=== PATIENT | male | born 1960 | race African-American/Black ===

== ENCOUNTER → 2016-11-04 | Outpatient (REF) | payer BC ==
[~2016-11-04] MED LIST: ASPI81TA85 PO; CATA0.2T PO; CLON-412 PO; COLA100C5 PO; DIOV80TA3 PO; FLAG500T PO; LANTINJ4 SC; LEVA1TAB2 PO; METO1TAB32 PO; METO25TAB PO; MULT1TAB8 PO; PROT1TAB2 PO; [UNRECOGNIZED DRUG - OTHER] EXT
== END ==
LOC: M LAB REF 18:48
PROVIDERS: ATTEND Family Medicine
DX: E07.9 Disorder of thyroid, unspecified (principal)

== ENCOUNTER → 2017-09-29 | Outpatient (REF) | payer BC ==
[2017-09-29 18:01] LABS: FREE T3 3.1 PG/ML (2.2-4.0)
== END ==
LOC: M LAB REF 17:06
DX: E07.9 Disorder of thyroid, unspecified (principal)
CPT/HCPCS: 84481

== ENCOUNTER → 2017-11-13 | Outpatient (CLI) | payer BC ==
[2017-11-13 15:32] LABS: FREE T4 0.69 NG/DL (0.76-1.46); THYROID STIMULATING HORMONE 0.572 uIU/ML (0.358-3.740)
[2017-11-14 09:22] LABS: THYROGLOBULIN ANTIBODY 23.2 U/ML (<60.0)
[2017-11-16 08:06] LABS: TSH RECEPTOR ASSAY 1.98 IU/L (0.00-1.75)
[2017-11-16 08:06] LABS: THYROID STIMULATING IMMUNOGLOB 1.47 IU/L (0.00-0.55)
== END ==
LOC: M LAB 13:17
DX: E05.90 Thyrotoxicosis, unspecified without thyrotoxic crisis or storm (principal)

== ENCOUNTER → 2017-12-20 | Outpatient (REF) | payer BC ==
[2017-12-20 08:45] LABS: ESTIMATED AVERAGE GLUCOSE 123 MG/DL (60-110); HEMOGLOBIN A1c 5.9 %
[2017-12-20 09:04] LABS: FREE T3 2.9 PG/ML (2.2-4.0); FREE T4 0.91 NG/DL (0.76-1.46); THYROID STIMULATING HORMONE 0.239 uIU/ML (0.358-3.740)
== END ==
LOC: M LAB REF 08:05
DX: E11.9 Type 2 diabetes mellitus without complications (principal); Z79.4 Long term (current) use of insulin; E05.90 Thyrotoxicosis, unspecified without thyrotoxic crisis or storm

== ENCOUNTER → 2018-03-30 | Outpatient (CLI) | payer BC ==
[2018-03-30 08:58] LABS: HEMATOCRIT 48.3 % (42.0-52.0); HEMOGLOBIN 16.3 g/dl (13.5-17.5); MEAN CORPUSCULAR HEMOGLOBIN 29.2 pg (27.0-33.0); MEAN CORPUSCULAR HGB CONC 33.7 g/dl (32.0-36.5); MEAN CORPUSCULAR VOLUME 86.4 fl (80.0-96.0); PLATELET COUNT, AUTOMATED 270 10^3/uL (150-450); RED BLOOD COUNT 5.59 10^6/uL (4.30-6.10); WHITE BLOOD COUNT 6.5 10^3/uL (4.0-10.0)
[2018-03-30 09:23] LABS: HEMOGLOBIN A1c 6.2 %
[2018-03-30 09:30] LABS: BLOOD UREA NITROGEN 18 MG/DL (7-18); CALCIUM LEVEL 9.5 MG/DL (8.5-10.1); CARBON DIOXIDE LEVEL 27 MEQ/L (21-32); CHLORIDE LEVEL 100 MEQ/L (98-107); CHOLESTEROL LEVEL 233 MG/DL (<200); CHOLESTEROL RISK RATIO 3.426 (<5); CREATININE FOR GFR 1.24 MG/DL (0.70-1.30); FREE T4 0.98 NG/DL (0.76-1.46); GLOMERULAR FILTRATION RATE > 60.0 (>56); GLUCOSE, FASTING 103 MG/DL (70-100); HDL CHOLESTEROL 68 MG/DL (>40); LDL CHOLESTEROL 139 MG/DL (<100); NON-HDL-C 165 MG/DL; POTASSIUM SERUM 3.6 MEQ/L (3.5-5.1); SODIUM LEVEL 137 MEQ/L (136-145); THYROID STIMULATING HORMONE 0.667 uIU/ML (0.358-3.740); TRIGLYCERIDES LEVEL 131 MG/DL (<150)
== END ==
LOC: M LAB 08:16
PROVIDERS: ATTEND Internal Medicine Endocrinology, Diabetes & Metabolism
DX: E11.9 Type 2 diabetes mellitus without complications (principal); Z79.4 Long term (current) use of insulin

== ENCOUNTER 2018-05-27 21:38 | Emergency (ER) | payer BC ==
[~2018-05-27] VITALS: Ht 177.8 cm; Wt 98.6 kg
[~2018-05-27 21:38] MED LIST changes: +METO1TAB63 PO; -METO25TAB PO
[2018-05-27] MEDS ORDERED: NS 1,000 ML IV ONE (22:15)
[2018-05-27 22:29] LABS: BASO % 0.2 % (0.0-1.0); EOS % 0.5 % (0.0-3.0); HEMATOCRIT 43.1 % (42.0-52.0); HEMOGLOBIN 14.4 g/dl (13.5-17.5); LYMPH # 1.3 10^3/uL (1.5-4.5); LYMPH % 14.3 % (24.0-44.0); MEAN CORPUSCULAR HEMOGLOBIN 28.5 pg (27.0-33.0); MEAN CORPUSCULAR HGB CONC 33.4 g/dl (32.0-36.5); MEAN CORPUSCULAR VOLUME 85.3 fl (80.0-96.0); MONO # 0.9 10^3/uL (0.0-0.8); MONO % 10.5 % (0.0-5.0); NEUTROPHILS # 6.5 10^3/uL (1.8-7.7); NEUTROPHILS % 73.6 % (36.0-66.0); PLATELET COUNT, AUTOMATED 275 10^3/uL (150-450); RED BLOOD COUNT 5.05 10^6/uL (4.30-6.10); WHITE BLOOD COUNT 8.9 10^3/uL (4.0-10.0)
[2018-05-27] MEDS ORDERED: METH10TA PO (22:40)
[2018-05-27] MEDS ORDERED: ASPI81TA85 PO (22:40)
[2018-05-27] MEDS ORDERED: METO1TAB32 PO (22:40)
[2018-05-27] MEDS ORDERED: PANT40TA3 PO (22:40)
[2018-05-27] MEDS ORDERED: AMLO10TA5 PO (22:40)
[2018-05-27 22:46] LABS: INR 1.08; PARTIAL THROMBOPLASTIN TIME 27.1 SECONDS (25.4-37.6); PROTHROMBIN TIME 14.1 SECONDS (12.1-14.4)
[2018-05-27 22:53] LABS: ALBUMIN 3.7 GM/DL (3.2-5.2); ALT/SGPT 31 U/L (12-78); BILIRUBIN,DIRECT 0.2 MG/DL (0.0-0.2); BILIRUBIN,TOTAL 0.6 MG/DL (0.2-1.0); BLOOD UREA NITROGEN 14 MG/DL (7-18); CALCIUM LEVEL 9.2 MG/DL (8.5-10.1); CARBON DIOXIDE LEVEL 25 MEQ/L (21-32); CHLORIDE LEVEL 104 MEQ/L (98-107); CREATININE FOR GFR 1.12 MG/DL (0.70-1.30); GLOMERULAR FILTRATION RATE > 60.0 (>56); GLUCOSE, FASTING 117 MG/DL (70-100); LIPASE 80 U/L (73-393); SODIUM LEVEL 138 MEQ/L (136-145); TOTAL PROTEIN 7.5 GM/DL (6.4-8.2)
[2018-05-27] MEDS ORDERED: ISOVUE-370 76% 125ML VIAL (Q9967 PER ML) As Ordered ONE (22:58)
--- NOTE | 2018-05-27 23:53 | REPVR ---
EXAM: CT Abdomen and Pelvis With Contrast EXAM DATE/TIME: 05/27/2018 11:01 PM CLINICAL HISTORY: 57 years old, male; Pain; Abdominal pain; Localized; Left lower quadrant (llq); Additional info: Llq pain, lower gi bleed TECHNIQUE: Imaging protocol: Axial computed tomography images of the abdomen and pelvis with intravenous contrast. Coronal and sagittal reformatted images were created and reviewed. Radiation optimization: All CT scans at this facility use at least one of these dose optimization techniques: automated exposure control; mA and/or kV adjustment per patient size (includes targeted exams where dose is matched to clinical indication); or iterative reconstruction. Contrast material: ISOVUE 370 Contrast volume: 100 ml Contrast route: IV COMPARISON: CT ABD PELVIS WITH CONTRAST 04/22/2015 1:19 AM FINDINGS: Lower thorax: No acute findings. ABDOMEN: Liver: There is a diffuse decrease in hepatic parenchymal density, consistent with fatty infiltration. Gallbladder and bile ducts: Normal. No calcified stones. No ductal dilation. Pancreas: Normal. No ductal dilation. Spleen: Normal. No splenomegaly. Adrenals: Normal. No mass. Kidneys and ureters: Normal. No hydronephrosis. Stomach and bowel: Mild diverticulosis is present in the distal colon. No diverticulitis. Appendix: No evidence of appendicitis. PELVIS: Bladder: Mild thickening of the bladder wall likely related to changes of chronic bladder outlet obstruction. Clinical correlation to exclude cystitis suggested. Reproductive: Unremarkable as visualized. ABDOMEN and PELVIS: Intraperitoneal space: Normal. No free air. No significant fluid collection. Bones/joints: Mild central spinal stenosis at L4-5. Bulging annulus at L5-S1. Soft tissues: Small periumbilical hernia. Small umbilical hernia. Vasculature: The aorta demonstrates mild atherosclerotic calcification. Lymph nodes: Normal. No enlarged lymph nodes. IMPRESSION: 1. There is a diffuse decrease in hepatic parenchymal density, consistent with fatty infiltration. 2. Mild thickening of the bladder wall likely related to changes of chronic bladder outlet obstruction. Clinical correlation to exclude cystitis suggested. 3. Mild diverticulosis is present in the distal colon. No diverticulitis. Electronically signed by: Yahir Chaparro On 05/27/2018 23:53:03 PM
[2018-05-28] MEDS ORDERED: CIPROFLOXACIN 500 MG TAB PO ONE
[2018-05-28] MEDS ORDERED: metroNIDAZOLE (FLAGYL) 500 MG TAB PO ONE
[2018-05-28] MEDS ORDERED: CIPR500T3 PO (00:01)
[2018-05-28] MEDS ORDERED: METR-201 PO (00:01)
[2018-05-28 00:15] VITALS: BP 173/83
== END 2018-05-28 00:29 | disposition home or self-care (01) ==
LOC: M ED 21:38
DX: K92.2 Gastrointestinal hemorrhage, unspecified (principal); K57.92 Diverticulitis of intestine, part unspecified, without perforation or abscess without bleeding; E11.9 Type 2 diabetes mellitus without complications; I10 Essential (primary) hypertension; Z79.899 Other long term (current) drug therapy; Z79.4 Long term (current) use of insulin; Z79.82 Long term (current) use of aspirin; Z85.46 Personal history of malignant neoplasm of prostate; Z92.3 Personal history of irradiation
CPT/HCPCS: 74177; 80048; 80076; 81001; 83605; 83690; 85025; 85610; 85730; 87040; 93041; 96360; 96361; 99285; Q9967

== ENCOUNTER → 2018-06-20 | Outpatient (CLI) | payer BC ==
[~2018-06-20] MED LIST changes: +AMLO10TA5 PO; +CIPR500T3 PO; +METH10TA PO; +METR-265 PO; +PANT40TA3 PO
[2018-06-20 11:38] LABS: HEMATOCRIT 44.2 % (42.0-52.0); HEMOGLOBIN 14.8 g/dl (13.5-17.5); MEAN CORPUSCULAR HEMOGLOBIN 28.2 pg (27.0-33.0); MEAN CORPUSCULAR HGB CONC 33.5 g/dl (32.0-36.5); MEAN CORPUSCULAR VOLUME 84.2 fl (80.0-96.0); PLATELET COUNT, AUTOMATED 318 10^3/uL (150-450); RED BLOOD COUNT 5.25 10^6/uL (4.30-6.10); WHITE BLOOD COUNT 6.7 10^3/uL (4.0-10.0)
[2018-06-20 12:24] LABS: BLOOD UREA NITROGEN 15 MG/DL (7-18); CALCIUM LEVEL 9.2 MG/DL (8.5-10.1); CARBON DIOXIDE LEVEL 28 MEQ/L (21-32); CHLORIDE LEVEL 102 MEQ/L (98-107); CHOLESTEROL LEVEL 234 MG/DL (<200); CHOLESTEROL RISK RATIO 4.105 (<5); FREE T4 1.23 NG/DL (0.76-1.46); GLOMERULAR FILTRATION RATE > 60.0 (>56); GLUCOSE, FASTING 126 MG/DL (70-100); HDL CHOLESTEROL 57 MG/DL (>40); LDL CHOLESTEROL 146 MG/DL (<100); NON-HDL-C 177 MG/DL; POTASSIUM SERUM 3.4 MEQ/L (3.5-5.1); SODIUM LEVEL 137 MEQ/L (136-145); THYROID STIMULATING HORMONE 0.159 uIU/ML (0.358-3.740); TRIGLYCERIDES LEVEL 155 MG/DL (<150)
[2018-06-20 13:08] LABS: HEMOGLOBIN A1c 7.4 %
== END ==
LOC: M LAB 10:43
PROVIDERS: ATTEND Internal Medicine Endocrinology, Diabetes & Metabolism
DX: E11.9 Type 2 diabetes mellitus without complications (principal); Z79.4 Long term (current) use of insulin

== ENCOUNTER → 2018-11-19 | Outpatient (CLI) | payer BC ==
[2018-11-19 10:34] LABS: HEMOGLOBIN A1c 6.8 %
[2018-11-19 10:42] LABS: BLOOD UREA NITROGEN 13 MG/DL (7-18); CALCIUM LEVEL 9.5 MG/DL (8.5-10.1); CARBON DIOXIDE LEVEL 26 MEQ/L (21-32); CHLORIDE LEVEL 100 MEQ/L (98-107); CHOLESTEROL LEVEL 236 MG/DL (<200); CHOLESTEROL RISK RATIO 3.687 (<5); CREATININE FOR GFR 1.38 MG/DL (0.70-1.30); FREE T3 2.6 PG/ML (2.2-4.0); FREE T4 0.92 NG/DL (0.76-1.46); GLOMERULAR FILTRATION RATE > 60.0 (>56); GLUCOSE, FASTING 132 MG/DL (70-100); HDL CHOLESTEROL 64 MG/DL (>40); LDL CHOLESTEROL 133 MG/DL (<100); NON-HDL-C 172 MG/DL; POTASSIUM SERUM 3.8 MEQ/L (3.5-5.1); SODIUM LEVEL 137 MEQ/L (136-145); TRIGLYCERIDES LEVEL 197 MG/DL (<150)
== END ==
LOC: M LAB 09:11
PROVIDERS: ATTEND Physician Assistant Medical
DX: E11.9 Type 2 diabetes mellitus without complications (principal)

== ENCOUNTER → 2019-02-19 | Outpatient (CLI) | payer BC ==
[2019-02-19 09:56] LABS: BLOOD UREA NITROGEN 10 MG/DL (7-18); CALCIUM LEVEL 9.3 MG/DL (8.5-10.1); CARBON DIOXIDE LEVEL 23 MEQ/L (21-32); CHLORIDE LEVEL 106 MEQ/L (98-107); CHOLESTEROL LEVEL 155 MG/DL (<200); CHOLESTEROL RISK RATIO 1.823 (<5); CREATININE FOR GFR 1.04 MG/DL (0.70-1.30); FREE T3 2.8 PG/ML (2.2-4.0); FREE T4 1.11 NG/DL (0.76-1.46); GLOMERULAR FILTRATION RATE > 60.0 (>56); GLUCOSE, FASTING 107 MG/DL (70-100); HDL CHOLESTEROL 85 MG/DL (>40); LDL CHOLESTEROL 52 MG/DL (<100); NON-HDL-C 70 MG/DL; SODIUM LEVEL 138 MEQ/L (136-145); THYROID STIMULATING HORMONE 0.082 uIU/ML (0.358-3.740); TRIGLYCERIDES LEVEL 90 MG/DL (<150)
[2019-02-19 09:59] LABS: MAU/CREAT RATIO 109.1 MCG/MG (0.0-30.0)
[2019-02-19 11:14] LABS: HEMOGLOBIN A1c 5.8 %
== END ==
LOC: M LAB 08:22
PROVIDERS: ATTEND Physician Assistant Medical
DX: E05.90 Thyrotoxicosis, unspecified without thyrotoxic crisis or storm (principal); E11.9 Type 2 diabetes mellitus without complications; Z79.4 Long term (current) use of insulin

== ENCOUNTER → 2019-06-26 | Outpatient (CLI) | payer BC ==
[2019-06-26 11:25] LABS: BLOOD UREA NITROGEN 9 MG/DL (7-18); CALCIUM LEVEL 9.2 MG/DL (8.5-10.1); CARBON DIOXIDE LEVEL 25 MEQ/L (21-32); CHLORIDE LEVEL 104 MEQ/L (98-107); FREE T3 3.2 PG/ML (2.2-4.0); FREE T4 1.07 NG/DL (0.76-1.46); GLOMERULAR FILTRATION RATE > 60.0 (>56); GLUCOSE, FASTING 141 MG/DL (70-100); POTASSIUM SERUM 4.2 MEQ/L (3.5-5.1); SODIUM LEVEL 135 MEQ/L (136-145); THYROID STIMULATING HORMONE 0.997 uIU/ML (0.358-3.740)
[2019-06-26 11:55] LABS: MAU/CREAT RATIO 90.3 MCG/MG (0.0-30.0)
== END ==
LOC: M LAB 09:57
PROVIDERS: ATTEND Physician Assistant Medical
DX: E11.9 Type 2 diabetes mellitus without complications (principal); Z79.4 Long term (current) use of insulin; E05.90 Thyrotoxicosis, unspecified without thyrotoxic crisis or storm

== ENCOUNTER → 2019-06-27 | Outpatient (CLI) | payer BC ==
[2019-06-27 17:03] LABS: HEMOGLOBIN A1c 6.9 %
== END ==
LOC: M LAB 15:52
PROVIDERS: ATTEND Internal Medicine Endocrinology, Diabetes & Metabolism
DX: E11.9 Type 2 diabetes mellitus without complications (principal)

== ENCOUNTER → 2019-07-30 | Outpatient (CLI) | payer BC | LOC: M LAB 10:13 | PROVIDERS: ATTEND Radiology Radiation Oncology | DX: C61 Malignant neoplasm of prostate (principal) ==

== ENCOUNTER → 2019-10-03 | Outpatient (CLI) | payer BC ==
[~2019-10-03] MED LIST changes: -AMLO10TA5 PO; +AMLO1TAB25 PO; -ASPI81TA85 PO; +ASPI81TA86 PO; +PANT40TA29 PO; -PANT40TA3 PO
[2019-11-11 11:45] LABS: HEMOGLOBIN A1c 6.6 %; MALB URINE SIEMENS 86.5 MG/L
[2019-11-11 11:47] LABS: BLOOD UREA NITROGEN 12 MG/DL (7-18); CALCIUM LEVEL 9.2 MG/DL (8.5-10.1); CARBON DIOXIDE LEVEL 27 MEQ/L (21-32); CHLORIDE LEVEL 100 MEQ/L (98-107); CHOLESTEROL LEVEL 171 MG/DL (<200); CHOLESTEROL RISK RATIO 2.342 (<5); CREATININE FOR GFR 1.24 MG/DL (0.70-1.30); FREE T4 1.01 NG/DL (0.76-1.46); GLOMERULAR FILTRATION RATE > 60.0 (>56); GLUCOSE, FASTING 129 MG/DL (70-100); HDL CHOLESTEROL 73 MG/DL (>40); LDL CHOLESTEROL 70 MG/DL (<100); NON-HDL-C 98 MG/DL; SODIUM LEVEL 135 MEQ/L (136-145); THYROID STIMULATING HORMONE 0.863 uIU/ML (0.358-3.740); TRIGLYCERIDES LEVEL 139 MG/DL (<150)
== END ==
LOC: M LAB 09:33
PROVIDERS: ATTEND Internal Medicine Endocrinology, Diabetes & Metabolism
DX: E11.9 Type 2 diabetes mellitus without complications (principal); Z79.4 Long term (current) use of insulin; E05.90 Thyrotoxicosis, unspecified without thyrotoxic crisis or storm

== ENCOUNTER → 2020-04-04 | Outpatient (CLI) | payer BC ==
[2020-04-04 11:44] LABS: HEMOGLOBIN A1c 6.5 %
[2020-04-04 11:51] LABS: CHOLESTEROL RISK RATIO 2.055 (<5); FREE T4 1.03 NG/DL (0.76-1.46); THYROID STIMULATING HORMONE 1.41 uIU/ML (0.358-3.740)
[2020-04-04 11:59] LABS: MALB URINE SIEMENS 20.1 MG/L; MAU/CREAT RATIO 15.2 MCG/MG (0.0-30.0)
== END ==
LOC: M LAB 09:22
PROVIDERS: ATTEND Internal Medicine Endocrinology, Diabetes & Metabolism
DX: E11.9 Type 2 diabetes mellitus without complications (principal); Z79.4 Long term (current) use of insulin

== ENCOUNTER → 2020-06-04 | Outpatient (CLI) | payer BC ==
[2020-06-04 10:24] LABS: BLOOD UREA NITROGEN 10 MG/DL (7-18); CALCIUM LEVEL 9.2 MG/DL (8.8-10.2); CARBON DIOXIDE LEVEL 27 MEQ/L (21-32); CHLORIDE LEVEL 101 MEQ/L (98-107); CREATININE FOR GFR 1.15 MG/DL (0.70-1.30); FREE T3 2.6 PG/ML (2.2-4.0); FREE T4 0.97 NG/DL (0.76-1.46); GLOMERULAR FILTRATION RATE > 60.0 (>49); GLUCOSE, FASTING 132 MG/DL (70-100); POTASSIUM SERUM 3.8 MEQ/L (3.5-5.1); SODIUM LEVEL 135 MEQ/L (136-145)
[2020-06-04 10:26] LABS: MAU/CREAT RATIO 23.6 MCG/MG (0.0-30.0)
== END ==
LOC: M LAB 08:58
PROVIDERS: ATTEND Physician Assistant Medical
DX: E11.9 Type 2 diabetes mellitus without complications (principal); Z79.4 Long term (current) use of insulin; C61 Malignant neoplasm of prostate; I10 Essential (primary) hypertension; E78.00 Pure hypercholesterolemia, unspecified; E05.90 Thyrotoxicosis, unspecified without thyrotoxic crisis or storm
CPT/HCPCS: 36415; 80048; 82043; 84439; 84443; 84481; G0103

== ENCOUNTER → 2020-09-03 | Outpatient (REF) | payer BC | LOC: M LAB REF 11:46 | PROVIDERS: ATTEND Ophthalmology | DX: D23.10 Other benign neoplasm of skin of unspecified eyelid, including canthus (principal) ==

== ENCOUNTER → 2020-09-15 | Outpatient (REF) | LOC: M LAB 15:53 | PROVIDERS: ATTEND Nurse Practitioner Adult Health | DX: Z00.00 Encounter for general adult medical examination without abnormal findings (principal) ==

== ENCOUNTER → 2020-12-09 | Outpatient (CLI) | payer BC ==
[2020-12-09 11:14] LABS: HEMOGLOBIN A1c 6.7 %
[2020-12-09 11:44] LABS: CHOLESTEROL RISK RATIO 2.405 (<5); FREE T4 1.07 NG/DL (0.76-1.46); THYROID STIMULATING HORMONE 1.3 uIU/ML (0.358-3.740)
== END ==
LOC: M LAB 09:30
PROVIDERS: ATTEND Physician Assistant Medical
DX: E11.9 Type 2 diabetes mellitus without complications (principal); Z79.4 Long term (current) use of insulin; E05.90 Thyrotoxicosis, unspecified without thyrotoxic crisis or storm

== ENCOUNTER → 2021-01-10 | Outpatient (CLI) | payer BC ==
[~2021-01-10] MED LIST changes: +ASPI1CHW3 PO; +ATOR1TAB19 PO; +HYDR-3490 PO; +TELM1TAB37 PO
== END ==
LOC: M LABSMTC 10:10
PROVIDERS: ATTEND Anesthesiology
DX: Z01.812 Encounter for preprocedural laboratory examination (principal); Z20.822 Contact with and (suspected) exposure to COVID-19

== ENCOUNTER 2021-01-15 07:43 | Day surgery (SDC) | payer BC ==
[~2021-01-15] VITALS: Ht 177.8 cm; Wt 94.7 kg
[~2021-01-15 07:43] MED LIST changes: +LIDOCAINE 2% 100MG/5ML SDV (FOR ANES.) As Ordered ONE; +NS 1,000 ML IV ONE; +propofoL 200 MG/20 ML VIAL As Ordered ONE
--- OUTSIDE RECORDS SUMMARY | 2021-01-15 07:46 | CCD | Continuity of Care Document ---
Author Author Lab Schedule, Wayne Ramsey Organization Unknown Address [address] [place] [address] Phone Unavailable Care Team Providers Care Coagulator Name Role Phone Loc Bowles MD AUTM [phone] Chrissy Lara AUTM Problems Active Problems Provider Date Insulin treated type 2 diabetes mellitus ROB Parra Onset: 05/01/2015 Essential hypertension ROB Parra Onset: 05/01/2015 Gastroesophageal reflux disease ROB Parra Onset: 0 05/01/2015 Secondary erectile dysfunction Loc Bowles M.D. Onset: 0 07/21/2015 Social History Type Date Description Comments Sex Unknown ETOH Use Rarely consumes alcohol Tobacco Use Start: Unknown Patient has never smoked Allergies, Adverse Reactions, Alerts Description No Known Drug Allergies Medications Active Medications SIG Qnty Indications Ordering Provide r Date Hydrochlorothiazide 25mg Tablets 1 by mouth every day 90tasola Bowles M.D. 08/24/2019 Ozempic 0.25or 0.5 m g/Dose Solution Pen-Inject inject 0.5 mg weekly 3ml Loc Bowles M.D. 07/10/2018 Tapazole 10mg Tablets po 1/2 tab daily (takes M, W, F) - per Dr Braden (Endocrine) 90tasola Bowles M.D. 05/31/2017 Metoprolol Succinate ER 25mg Tablets ER 24HR 1 by mouth every day 90nehemias Bowles M.D. 11/04/2016 Norvasc 10mg Tablets 1 by mouth every day 90tasola Bowles M.D. 10/21/2015 Lancets 30G 30G Misc test twice a day and as needed e11.9 100units E11.9 Loc Bowles M.D. 07/21/2015 Pen [place] 31G X 6 mm Misc as directed every day 100units E11.9 Loc Bowles M.D. 05/30/2015 Onetouch Ultra Blue Strips test every day and as needed 100units E11.9 Loc Bowles M.D. 05/30/2015 Micardis 80mg Tablets 1 daily 30tabs Loc Bowles M.D. History Medications Tobramycin-Dexamethasone 0.3-0.1% Suspension 1 drop affected eye three times a day x 7 days 2.500ml Loc Bowles M.D. 06/04/2020 - 06/19/2020 Immunizations Description No Information Available Vital Signs Date Vital Result Comment 06/19/2020 12:01pm BP Systolic 138 mmHg BP Diastolic 90 mmHg Heart Rate 78 /min Height 71 inches 5'11" Weight 211.00 lb BMI (Body Mass Index) 29.4 kg/m2 02/20/2020 3:16pm BP Systolic 142 mmHg BP Diastolic 80 mmHg BP Systolic Recheck 135 mmHg BP Diastolic Recheck 70 mmHg Heart Rate 78 /min Height 71 inches 5'11" Weight 208.00 lb BMI (Body Mass Index) 29.0 kg/m2 Results Test Acquired Date Facility Test Result H/L Range Note A1c 08/29/2020 [facility] Personal Attendant: Dr Kulwant Alcantara [place], [place] [id number] [phone] Hba1c 7.0 % High <5.7 1 Est Avg Glucose 154 mg/dL High 60 - 110 Comprehensive Chem Profile 08/29/2020 [facility] Personal Attendant: [place] [address] [phone] Glucose 147 mg/dL High 74 - 99 2 BUN 11 mg/dL 7 - 18 Creatinine 1.2 mg/dL 0.6 - 1.3 Sodium 136 mEq/L 136 - 145 Potassium 3.7 mEq/L 3.5 - 5.1 Chloride 98 mEq/L 98 - 107 Carbon Dioxide 27 mEq/L 21 - 32 Calcium 9.2 mg/dL 8.5 - 10.1 Alk. Phosphatase 83 mg/dL 46 - 116 Total Bilirubin 1.1 mg/dL High 0.2 - 1.0 Ast (Sgot) 23 U/L 15 - 37 Alt (SGPT) 36 U/L 12 - 78 Albumin 3.6 g/dL 3.4 - 5.0 Total Protein 7.2 g/dL 6.4 - 8.2 A/G Ratio 1.00 CALC 1.00 - 1.90 GFR >= 60 mL/min >60 GFR >= 60 mL/min >60 3 Lipid Profile 08/29/2020 [facility] Personal Attendant: [place] [address] [phone] Cholesterol 172 mg/dL 131 - 200 Triglycerides 189 mg/dL High 30 - 150 HDL Cholesterol 68 mg/dL High 35 - 60 LDL (Calculated) 66 CALC 50 - 159 Basic Metabolic Profile 06/04/[address] [address] [phone] Glucose, Fasting 132 mg/dL High 70-100 Blood Urea Nitrogen 10 mg/dL Normal 7-18 Creatinine For GFR 1.15 mg/dL Normal 0.70-1.30 Glomerular Filtration Rate > 60.0 Normal >49 4 Sodium Level 135 mEq/L Low 136-145 Potassium Serum 3.8 mEq/L Normal 3.5-5.1 Chloride Level 101 mEq/L Normal 98-107 Carbon Dioxide Level 27 mEq/L Normal 21-32 Anion Gap 7 mEq/L Low 8-16 Calcium Level 9.2 mg/dL Normal 8.8-10.2 Laboratory test finding 06/04/2020 [facility] [address] [place] [address] [phone] PSA Screening 0.45 NG/ML Normal < 4.00 5 FT4&TSH Panel 06/04/2020 [facility] nter [address] [place] [address] [phone] Thyroid Stimulating Hormone 1.740 uIU/ML Normal 0. 358-3.740 Free T4 0.97 ng/dL Normal 0.76-1.46 Laboratory test finding 06/04/[address], [place] [address] [phone] Free T3 2.6 pg/mL Normal 2.2-4.0 Microalbumin Random 06/04/2020 [facility] nter [address] [place] [address] [phone] Creatinine, Urine 110.0 mg/dL Normal Malb Urine Siemens 26.0 mg/L Normal Bryan/Creat Ratio 23.6 MCG/MG Normal 0.0-30.0 6 1 Lab Result Notes: Pre-Diabetes 5.7 - 6.4 % Diabetes = or > 6.5% 2 100-125 mg/dL PRE-DIABET ES/FASTING >126 mg/dL DIABETES/FASTING 3 CHRONIC KIDNEY DISEASE STAGI NG PER NKF STAGE I & II GFR >= 60 NORMAL TO MILDLY DECREASED STAGE III GFR 30-59 MODERATELY DECREASED STAGE IV GFR 15-29 SEVERELY DECREASED STAGE V GFR <15 VERY LITTLE GFR LEFT ESRD GFR <15 ON REWARDS CONSULTANT 4 Units are mL/min/1.73 m2 Chronic Kidney Disease Staging per NKF: Stage I & II GFR >=60 Normal to Mildly Decreased Stage III GFR 30-59 Moderately Decreased Stage IV GFR 15-29 Severely Decreased Stage V GFR <15 Very Little GFR Left ESRD GFR <15 on REWARDS CONSULTANT 5 The PSA assay is performed o n the Siemens [place] analyzer by LOCI sandwich chemiluminescent immunoassay and should not be compared interchangeably with other methods. It should not be used alone as a screening test or diagnosis for the presence or absence of malignant disease. Predictions of disease recurrence should not be based solely on values obtained from serial patient serum values. [address] [employer] STATES THAT MICROALBUMINURIA IS PRESENT IF THE MICROALBUMIN/CREATININE RATIO EXCEEDS 30 MCG/MG. THE THRESHOLD FOR CLINICAL ALBUMINURIA IS REACHED AT 300 MCG/MG. THE CLASSIFICATION OF A PATIENT SHOULD BE BASED UPON AT LEAST 2 OF 3 ABNORMAL RESULTS ON SPECIMENS COLLECTED WITHIN A 3 TO 6 MONTH TIME FRAME. Procedures Date Code Description Status 06/19/2020 87551 Office/Outpatient Established Lo w MDM 20-29 Min Completed 04/22/2017 [id number] Diabetic Retinal Eye Exam Comple bertha 07/10/2015 [id number] Colonoscopy Completed Medical Devices Description No Information Available Encounters Type Date Location Provider Dx Diagnosis Office Visit 06/19/2020 11:45a [facility] Loc Bowles M.D. H53.9 Unspecified visual disturbance E07.9 Disorder of thyroid, unspeci fied I10 Essential (primary) hyperten mi E11.9 Type 2 diabetes mellitus wit hout complications Z86.010 Personal history of colonic polyps Z85.46 Personal history of malignan t neoplasm of prostate Assessments Date Code Description Provider 08/29/2020 E11.9 Type 2 diabetes mellitus without complications Loc Bowles M.D. 08/29/2020 E11.9 Type 2 diabetes mellitus without complications Lab Schedule 08/29/2020 E78.00 Pure hypercholesterolemia, unspe cified Loc Bowles M.D. 08/29/2020 E78.00 Pure hypercholesterolemia, unspe cified Lab Schedule 06/19/2020 H53.9 Unspecified visual disturbance Jayesh Bowles M.D. 06/19/2020 E07.9 Disorder of thyroid, unspecified Loc Bowles M.D. 06/19/2020 I10 Essential (primary) hypertension Loc Bowles M.D. 06/19/2020 E11.9 Type 2 diabetes mellitus without complications Loc Bowles M.D. 06/19/2020 Z86.010 Personal history of colonic poly ps Loc Bowles M.D. 06/19/2020 Z85.46 Personal history of malignant ne oplasm of prostate Loc Bowles M.D. Plan of Treatment Future Appointment(s):* 01/20/2021 11:30 am - Loc Bowles M.D. at [facility] 02/20/2020 - Loc Bowles M.D.* E78.00 Pure hypercholesterolemia, unspecified * I10 Essential (primary) hypertension * E11.21 Type 2 diabetes mellitus with diabetic nephropathy * E07.9 Disorder of thyroid, unspecified * Z85.46 Personal history of malignant neoplasm of prostate * Z86.010 Personal history of colonic polyps * * Comments:* 1. Hypercholesterolemia: We do await labs today. Lipids were good at Dr. Lara's office. We will monitor.2. Hypertension: Blood pressure was high initially without any associated symptoms and on recheck was stable. We will continue current regimen and monitor.3. Type 2 diabetes mellitus with diabetic nephropathy: Sees Dr. Lara.4. Personal history of malignant neoplasm of prostate: Sees Dr Man of [facility] in [place].5. Disorder of thyroid: We do await labs today. I did review his TSH level from Dr. Lara's which was under good control. Patient is on Tapazole, will continue and monitor.6. Personal history of colonic polyps: His last colonoscopy was in July [address] Mitchell which showed presence of total 2 polyps and has 5 year follow up. Patient will follow up with Dr. Mitchell appropriately.Ongoing cares: We will obtain EKG on the way out. He will be getting Holter monitor and will follow up promptly for results. I am going to see him again in 6 months with CMP, lipids, TSH and HgbA1c. If he has new problems or issues sooner he will let us know. Functional Status Description No Information Available Mental Status Description No Information Available Referrals Refer to Reason for Referral Status Appt Date Javon Dumas DO CONSULT FOR SWOLLEN EYELIDS, BLURRY VISION Created [facility] [address] [place] [address],[address] [place] [address] [phone]
--- OUTSIDE RECORDS SUMMARY | 2021-01-15 07:46 | CCD | Continuity of Care Document ---
Author Author Wayne CAR PA Organization Unknown Address [address], [address] [place] [address] Phone [phone] Care Team Providers Care Pad Making Machine Operator Name Role Phone Loc Bowles M.D. AUTM [phone] Problems Active Problems Provider Date Essential hypertension Tayo Mitchell JR, MD Onset: 03/03/20 20 Social History Type Date Description Comments Sex Unknown ETOH Use 2 A Day Tobacco Use Start: Unknown Denies Smoking Recreational Drug Use Denies Drug Use Allergies, Adverse Reactions, Alerts Description No Known Drug Allergies Medications Active Medications SIG Qnty Indications Ordering Provide r Date Telmisartan 80mg Tablets 1 qd Unknown Methimazole 10mg Tablets 1 tab on Tuesday, Tuesday & Tuesday Unknown Amlodipine Besylate 10mg Tablets 1 qd Unknown Hydrochlorothiazide 25mg Tablets 1 qd Unknown Metoprolol Succinate ER 25mg Tablets ER 24HR 1 qd Unknown Atorvastatin Calcium 10mg Tablets 1 qd Unknown Ozempic (0.25 Or 0.5 MG/Dose) 2mg/1.5ML Solution Pen-Inject 0.5 MG once a week Unknown Immunizations Description No Information Available Vital Signs Date Vital Result Comment 10/21/2020 10:03am BP Systolic 130 mmHg BP Diastolic 70 mmHg Height 70 inches 5'10" Weight 238.00 lb BMI (Body Mass Index) 34.1 kg/m2 [place] Body Weight 166 lb Weight 107.957 kg BSA (Body Surface Area) 2.25 m2 03/03/2020 10:25am BP Systolic 157 mmHg BP Diastolic 95 mmHg Height 70 inches 5'10" Weight 205.25 lb BMI (Body Mass Index) 29.4 kg/m2 [place] Body Weight 166 lb Weight 93.101 kg BSA (Body Surface Area) 2.11 m2 Results Description No Information Available Procedures Description No Information Available Medical Devices Description No Information Available Encounters Description No Information Available Assessments Date Code Description Provider 10/21/2020 Z86.010 Personal history of colonic poly ps GARCIA Mcclure Plan of Treatment No Information Available Functional Status Description No Information Available Mental Status Description No Information Available Referrals Description No Information Available
--- OUTSIDE RECORDS SUMMARY | 2021-01-15 07:46 | CCD | Continuity of Care Document ---
Author Author Wayne CAR PA Organization Unknown Address [address], [address] [place] [address] Phone [phone] Care Team Providers Care Hot Wire Glass Tube Cutter Name Role Phone Loc Bowles M.D. AUTM [phone] Problems Active Problems Provider Date Essential hypertension [...] lb BMI (Body Mass Index) 34.1 kg/m2 [place] Body Weight 166 lb Weight 107.957 kg BSA (Body Surface Area) 2.25 m2 03/03/2020 10:25am BP Systolic 157 mmHg BP Diastolic 95 mmHg Height 70 inches 5'10" Weight 205.25 lb BMI (Body Mass Index) 29.4 kg/m2 [place] Body Weight 166 lb Weight 93.101 kg BSA (Body Surface Area) 2.11 m2 Results Description No Information Available Procedures Date Code Description Status 10/21/2020 64496 Office/Outpatient Established Lo w MDM 20-29 Min Completed Medical Devices Description No Information Available Encounters Type Date Location Provider Dx Diagnosis Office Visit 10/21/2020 10:15a [facility] GARCIA Marie Z86.010 Personal history of colonic polyps Assessments Date Code Description Provider 10/21/2020 Z86.010 Personal history of colonic poly ps GARCIA Mcclure Plan of Treatment No Information Available Functional Status Description No Information Available Mental Status Description No Information Available Referrals Description No Information Available
--- OUTSIDE RECORDS SUMMARY | 2021-01-15 07:46 | CCD | Continuity of Care Document ---
Author Organization Unknown Address Unknown Phone Unavailable Care Team Providers Care Clerical Investigator Name Role Phone Loc Bowles MD AUTM [phone] Chrissy Lara AUTM Problems Active Problems Provider Date Insulin treated type 2 diabetes mellitus ROB Parra Onset: 05/01/2015 Essential hypertension ROB Parra Onset: 05/01/2015 Gastroesophageal reflux disease ROB Parra Onset: 0 05/01/2015 Secondary erectile dysfunction Loc Bowles M.D. Onset: 0 07/21/2015 Social History Type Date Description Comments Sex Unknown ETOH Use Rarely consumes alcohol Tobacco Use Start: Unknown Patient has never smoked Allergies and adverse reactions Description No Known Drug Allergies Medications Active Medications SIG Qnty Indications Ordering Provide r Date Hydrochlorothiazide 25mg Tablets 1 by mouth every day 90tabs Loc Bowles M.D. 08/24/2019 Ozempic 0.25or 0.5 m g/Dose Solution Pen-Inject inject 0.5 mg weekly 3ml Loc Bowles M.D. 07/10/2018 Tapazole 10mg Tablets po 1/2 tab daily (takes M, W, F) - per Dr Braden (Endocrine) 90tabs Loc Bowles M.D. 05/31/2017 Metoprolol Succinate ER 25mg Tablets ER 24HR 1 by mouth every day 90tabs Loc Bowles M.D. 11/04/2016 Norvasc 10mg Tablets 1 by mouth every day 90tabs Loc Bowles M.D. 10/21/2015 Lancets 30G 30G Misc test twice a day and as needed e11.9 100units E11.9 Loc Bowles M.D. 07/21/2015 Pen [place] 31G X 6 mm Misc as directed every day 100units E11.9 Loc Bowles M.D. 05/30/2015 Onetouch Ultra Blue Strips test every day and as needed 100units E11.9 Loc Bowles M.D. 05/30/2015 Micardis 80mg Tablets 1 daily 30tabs Loc Bowles M.D. Immunizations Description No Information Available Vital Signs [...] Date Facility Test Result H/L Range Note Hemoglobin A1c 12/09/[address] [id number] [phone] Hemoglobin A1c 6.7 % Normal 1 Estimated Average Glucose 146 mg/dL High 60-110 Lipid Panel 12/09/[address] [id number] [phone] Triglycerides Level 107 mg/dL Normal <150 Cholesterol Level 166 mg/dL Normal <200 HDL Cholesterol 69 mg/dL Normal >40 LDL Cholesterol 76 mg/dL Normal <100 Non-HDL-C 97 mg/dL Normal Cholesterol Risk Ratio 2.405 Normal <5 FT4&TSH Panel 12/09/[address] [id number] [phone] Thyroid Stimulating Hormone 1.300 uIU/ML Normal 0. 358-3.740 Free T4 1.07 ng/dL Normal 0.76-1.46 A1c 08/29/2020 [facility] Curriculum And Assessment Director: [place] [address] [phone] Hba1c 7.0 % High <5.7 2 Est Avg Glucose 154 mg/dL High 60 - 110 Comprehensive Chem Profile 08/29/2020 [facility] Curriculum And Assessment Director: [place] [address] [phone] Glucose 147 mg/dL High 74 - 99 3 BUN 11 mg/dL 7 - 18 Creatinine [...] mL/min >60 GFR >= 60 mL/min >60 4 Lipid Profile 08/29/2020 [facility] Curriculum And Assessment Director: Dr Kulwant [place] [address] [phone] Cholesterol 172 mg/dL 131 - 200 Triglycerides 189 mg/dL High 30 - 150 HDL Cholesterol 68 mg/dL High 35 - 60 LDL (Calculated) 66 CALC 50 - 159 1 REFERENCE RANGES: <=5.6% NORMAL 5.7-6.4% SUGGESTS IMPAIRED GLUCOSE META BOLISM/PREDIABETIC >= 6.5% ABNORMAL 2 Lab Result Notes: Pre-Diabetes 5.7 - 6.4 % Diabetes = or > 6.5% 3 100-125 mg/dL PRE-DIABET ES/FASTING >126 mg/dL DIABETES/FASTING 4 CHRONIC KIDNEY DISEASE STAGI NG PER NKF STAGE I & II GFR >= 60 NORMAL TO MILDLY DECREASED STAGE III GFR 30-59 MODERATELY DECREASED STAGE IV GFR 15-29 SEVERELY DECREASED STAGE V GFR <15 VERY LITTLE GFR LEFT ESRD GFR <15 ON VICE PROVOST Procedures Date Code Description Status 06/19/2020 29668 Office/Outpatient Established Lo w MDM 20-29 Min Completed 04/22/2017 [id number] Diabetic Retinal Eye Exam Comple [facility] 07/10/2015 [id number] Colonoscopy Completed Medical Devices Description No Information Available Encounters Type Date Location Provider Dx Diagnosis Office Visit 06/19/2020 11:45a [facility] Loc Bowles M.D. H53.9 Unspecified [...] 11:30 am - Loc Bowles M.D. at [facility] 02/20/2020 - Loc Bowles M.D.* E78.00 [...] neoplasm of prostate: Sees Dr Man of [facility] in [place].5. Disorder of thyroid: We do await labs [...] CONSULT FOR SWOLLEN EYELIDS, BLURRY VISION Created [facility] [address] [place] [address],[address] [place] [address] [phone]
--- OUTSIDE RECORDS SUMMARY | 2021-01-15 07:47 | CCD ---
Author Author [facility] Organization [facility] Address Unknown Phone Unavailable Care Team Providers Care Bottle Line Worker Name Role Phone Sophia Bowles MD Unavailable Unavailable Sophia Bowles MD Unavailable Unavailable Sophia Bowles MD Unavailable Unavailable Sophia Bowles MD Unavailable Unavailable Sophia Bowles MD Unavailable Unavailable Sophia Bowles MD Unavailable Unavailable Sophia Bowles MD Unavailable Unavailable Sophia Bowles MD Unavailable Unavailable Sophia Bowles MD Unavailable Unavailable Sophia Bowles MD Unavailable Unavailable Sophia Bowles MD Unavailable Unavailable Sophia Bowles MD Unavailable Unavailable Sophia Bowles MD Unavailable Unavailable Sophia Bowles MD Unavailable Unavailable Sophia Bowles MD Unavailable Unavailable Sophia Bowles MD Unavailable Unavailable Sophia Bowles MD Unavailable Unavailable Sophia Bowles MD Unavailable Unavailable Sophia Bowles MD Unavailable Unavailable Sophia Bowles MD Unavailable Unavailable Sophia Bowles MD Unavailable Unavailable Sophia Bowles MD Unavailable Unavailable Sophia Bowles MD Unavailable Unavailable Sophia Bowles MD Unavailable Unavailable Sophia Bowles MD Unavailable Unavailable Sophia Bowles MD Unavailable Unavailable Sophia Bowles MD Unavailable Unavailable Sophia Bowles MD Unavailable Unavailable Sophia Bowles MD Unavailable Unavailable Sophia Bowles MD Unavailable Unavailable Sophia Bowles MD Unavailable Unavailable Sophia Bowles MD Unavailable Unavailable Jelena F Loc FLETCHER Unavailable Unavailable Jelena F Loc FLECTHER Unavailable Unavailable White F Loc FLETCHER Unavailable Unavailable Jelena F Loc FLETCHER Unavailable Unavailable Jelena F Loc FLETCHER Unavailable Unavailable Jelena F Loc FLETCHER Unavailable Unavailable Jelena F Loc FLETCHER Unavailable Unavailable White F Loc FLETCHER Unavailable Unavailable White F Loc FLETCHER Unavailable Unavailable Jelena F Loc FLETCHER Unavailable Unavailable Jelena F Loc FLETCHER Unavailable Unavailable Jelena F Loc FLETCHER Unavailable Unavailable Jelena F Loc FLETCHER Unavailable Unavailable Jelena F Loc FLETCHER Unavailable Unavailable Jelena F Loc FLETCHER Unavailable Unavailable White F Loc FLETCHER Unavailable Unavailable Jelena F Loc FLETCHER Unavailable Unavailable Jelena F Loc FLETCHER Unavailable Unavailable Jelena F Loc FLETCHER Unavailable Unavailable Jelena F Loc FLETCHER Unavailable Unavailable Jelena F Loc FLETCHER Unavailable Unavailable Jelena F Loc FLETCHER Unavailable Unavailable Jelena F Loc FLETCHER Unavailable Unavailable Jelena F Loc FLETCHER Unavailable Unavailable Jelena F Loc FLETCHER Unavailable Unavailable Jelena F Loc FLETCHER Unavailable Unavailable Jelena F Loc FLETCHER Unavailable Unavailable Jelena F Loc FLETCHER Unavailable Unavailable Jelena F Loc FLETCHER Unavailable Unavailable Jelena F Loc FLETCHER Unavailable Unavailable Jelena F Loc FLETCHER Unavailable Unavailable Jelena F Loc FLETCHER Unavailable Unavailable Jelena F Loc FLETCHER Unavailable Unavailable Jelena F Loc FLETCHER Unavailable Unavailable Sophia Bowles MD Unavailable Unavailable Sophia Bowles MD Unavailable Unavailable Sophia Bowles MD Unavailable Unavailable Sophia Bowles MD Unavailable Unavailable Sophia Bowles MD Unavailable Unavailable Sophia Bowles MD Unavailable Unavailable Sophia Bowles MD Unavailable Unavailable Sophia Bowles MD Unavailable Unavailable Sophia Bowles MD Unavailable Unavailable Sophia Bowles MD Unavailable Unavailable Sophia Bowles MD Unavailable Unavailable Martina CHOU MD Unavailable Unavailable Martina CHOU MD Unavailable Unavailable Martina CHOU MD Unavailable Unavailable Martina CHOU MD Unavailable Unavailable Martina CHOU MD Unavailable Unavailable Martina CHOU MD Unavailable Unavailable Martina CHOU MD Unavailable Unavailable Martina CHOU MD Unavailable Unavailable Martina CHOU MD Unavailable Unavailable Martina CHOU MD Unavailable Unavailable Martina CHOU MD Unavailable Unavailable GENDZIIRMA, Martina MENA MD Unavailable Unavailable GENDZIIRMA, Martina MENA MD Unavailable Unavailable GENDZIIRMA, Martina MENA MD Unavailable Unavailable GENDZIIRMA, Martina MENA MD Unavailable Unavailable GENDZIIRMA, Martina MENA MD Unavailable Unavailable GENDZIIRMA, Martina MENA MD Unavailable Unavailable GENDZIIRMA, Martina MENA MD Unavailable Unavailable GENDZIIRMA, Martina MENA MD Unavailable Unavailable GENDZIIRMA, Martina MENA MD Unavailable Unavailable GENDZIIMRA, Martina MENA MD Unavailable Unavailable GENDZIIRMA, Martina MENA MD Unavailable Unavailable GENDZIIRMA, Martina MENA MD Unavailable Unavailable GENDZIIRMA, Martina MENA MD Unavailable Unavailable GENDZIIRMA, Martina MENA MD Unavailable Unavailable GENDZIIRMA, Martina MENA MD Unavailable Unavailable GENDZIIRMA, Martina MENA MD Unavailable Unavailable GENDZIIRMA, Martina MENA MD Unavailable Unavailable GENDZIIRMA, Martina MENA MD Unavailable Unavailable GENDZIIRMA, Martina MENA MD Unavailable Unavailable GENDZIIRMA, Martina MENA MD Unavailable Unavailable GENDZIIRMA, Martina MENA MD Unavailable Unavailable GENDZIIRMA, Martina MENA MD Unavailable Unavailable GENDZIIRMA, Martina MENA MD Unavailable Unavailable GENDZIIRMA, Martina MENA MD Unavailable Unavailable GENSHANNON, Martina MENA MD Unavailable Unavailable GENDZIMartina SOLIS MD Unavailable Unavailable GENDZIIRMA, Martina MENA MD Unavailable Unavailable GENDMartina ZIMMERMAN MD Unavailable Unavailable GENDZIMartina SOLIS MD Unavailable Unavailable GENDMartina ZIMMERMAN MD Unavailable Unavailable GENDZIMartina SOLIS MD Unavailable Unavailable GENDMartina ZIMMERMAN MD Unavailable Unavailable GENDZIMartina SOLIS MD Unavailable Unavailable GENDZIIRMA, Martina MENA MD Unavailable Unavailable GENDZIMartina SOLIS MD Unavailable Unavailable GENDZIMartina SOLIS MD Unavailable Unavailable GENDZIMartina SOLIS MD Unavailable Unavailable GENDZIMartina SOLIS MD Unavailable Unavailable GENDZIMartina SOLIS MD Unavailable Unavailable GENDZIIRMA, Martina MENA MD Unavailable Unavailable GENDZIIRMA, Martina MENA MD Unavailable Unavailable GENDZIELELILIANA, Martina MENA MD Unavailable Unavailable GENDZIIRMA, Martina MENA MD Unavailable Unavailable GENDZIMartina SOLIS MD Unavailable Unavailable GENDZIIRMA, Martina MENA MD Unavailable Unavailable GENDZIIRMA, Martina MENA MD Unavailable Unavailable GENDZIIRMA, Martina MENA MD Unavailable Unavailable GENDZIIRMA, Martina MENA MD Unavailable Unavailable GENDZIIRMA, Martina MENA MD Unavailable Unavailable GENDZIIRMA, Martina MENA MD Unavailable Unavailable GENDZIIRMA, Martina MENA MD Unavailable Unavailable GENDZIIRMA, Martina MENA MD Unavailable Unavailable GENDZIIRMA, Martina MENA MD Unavailable Unavailable GENDZIIRMA, Martina MENA MD Unavailable Unavailable GENDZIIRMA, Martina MENA MD Unavailable Unavailable GENDZIIRMA, Martina MENA MD Unavailable Unavailable GENDZIIRMA, Martina MENA MD Unavailable Unavailable GENDZIIRMA, Martina MENA MD Unavailable Unavailable GENDZIIRMA, Martina MENA MD Unavailable Unavailable GENSHANNON, Martina MENA MD Unavailable Unavailable GENDERASMO, Martina MENA MD Unavailable Unavailable GENDERASMO, Martina MENA MD Unavailable Unavailable GENMartina ORTEGA MD Unavailable Unavailable GENMartina ORTEGA MD Unavailable Unavailable GENSHANNON, Martina MENA MD Unavailable Unavailable GENMartina ORTEGA MD Unavailable Unavailable GENDMartina ZIMMERMAN MD Unavailable Unavailable GENDZIMartina SOLIS MD Unavailable Unavailable GENMartina ORTEGA MD Unavailable Unavailable GENMartina ORTEGA MD Unavailable Unavailable GENDMartina ZIMMERMAN MD Unavailable Unavailable GENDZIIRMA, Martina MENA MD Unavailable Unavailable GENDZIMartina SOLIS MD Unavailable Unavailable GENDZIMartina SOLIS MD Unavailable Unavailable Simione-Albino, Lucero PA Unavailable Unavailable Simione-Albino, Lucero PA Unavailable Unavailable Simione-Albino, Lucero PA Unavailable Unavailable Simione-Albino, Lucero PA Unavailable Unavailable Simione-Albino, Lucero PA Unavailable Unavailable Simione-Albino, Lucero PA Unavailable Unavailable Simione-Albino, Lucero PA Unavailable Unavailable Simione-Albino, Lucero PA Unavailable Unavailable Simione-Albino, Lucero PA Unavailable Unavailable Simione-Albino, Lucero PA Unavailable Unavailable Simione-Albino, Lucero PA Unavailable Unavailable Simione-Albino, Lucero PA Unavailable Unavailable Simione-Albino, Lucero PA Unavailable Unavailable Simione-Albino, Lucero PA Unavailable Unavailable Simione-Albino, Lucero PA Unavailable Unavailable Simione-Albino, Lucero PA Unavailable Unavailable Simione-Albino, Lucero PA Unavailable Unavailable Simione-Albino, Lucero PA Unavailable Unavailable Simione-Albino, Lucero PA Unavailable Unavailable Simione-Albino, Lucero PA Unavailable Unavailable Simione-Albino, Lucero PA Unavailable Unavailable Simione-Albino, Lucero PA Unavailable Unavailable Simione-Albino, Lucero PA Unavailable Unavailable Simione-Albino, Lucero PA Unavailable Unavailable Simione-Albino, Lcuero PA Unavailable Unavailable Simione-Albino, Lucero PA Unavailable Unavailable Simione-Albino, Lucero PA Unavailable Unavailable Simione-Albino, Lucero PA Unavailable Unavailable Simione-Albino, Lucero PA Unavailable Unavailable Simione-Albino, Lucero PA Unavailable Unavailable Simione-Albino, Lucero PA Unavailable Unavailable Simione-Albino, Lucero PA Unavailable Unavailable Simione-Albino, Lucero PA Unavailable Unavailable Gomez, L Darlin RPA Unavailable Unavailable Gomez, L Darlin RPA Unavailable Unavailable Gomez, L Darlin RPA Unavailable Unavailable Gomez, L Darlin RPA Unavailable Unavailable Gomez, L Darlin RPA Unavailable Unavailable Gomez, L Darlin RPA Unavailable Unavailable Gomez, L Darlin RPA Unavailable Unavailable Gomez, L Darlin RPA Unavailable Unavailable Gomez, L Darlin RPA Unavailable Unavailable Gomez, L Darlin RPA Unavailable Unavailable Gomez, L Darlin RPA Unavailable Unavailable Gomez, L Darlin RPA Unavailable Unavailable Gomez, L Darlin RPA Unavailable Unavailable Gomez, L Darlin RPA Unavailable Unavailable Gomez, L Darlin RPA Unavailable Unavailable Gomez, L Darlin RPA Unavailable Unavailable Gomez, L Darlin RPA Unavailable Unavailable Gomez, L Darlin RPA Unavailable Unavailable Gomez, L Darlin RPA Unavailable Unavailable Gomez, L Darlin RPA Unavailable Unavailable Gomez, L Darlin RPA Unavailable Unavailable Gomez, L Darlin RPA Unavailable Unavailable Gomez, L Darlin RPA Unavailable Unavailable Gomez, L Darlin RPA Unavailable Unavailable Gomez, L Darlin RPA Unavailable Unavailable Gomez, L Darlin RPA Unavailable Unavailable Gomez, L Darlin RPA Unavailable Unavailable Gomez, L Darlin RPA Unavailable Unavailable Gomez, L Darlin RPA Unavailable Unavailable Gomez, L Darlin RPA Unavailable Unavailable Gomez, L Darlin RPA Unavailable Unavailable Gomez, L Darlin RPA Unavailable Unavailable AURY, A RAFIA DO Unavailable Unavailable AURY, A RAFIA DO Unavailable Unavailable AURY, A RAFIA DO Unavailable Unavailable AURY, A RAFIA DO Unavailable Unavailable AURY, A RAFIA DO Unavailable Unavailable AURY, A RAFIA DO Unavailable Unavailable AURY, A RAFIA DO Unavailable Unavailable AURY, A RAFIA DO Unavailable Unavailable AURY, A RAFIA DO Unavailable Unavailable AURY, A RAFIA DO Unavailable Unavailable AURY, A RAFIA DO Unavailable Unavailable AURY, A RAFIA DO Unavailable Unavailable AURY, A RAFIA DO Unavailable Unavailable AURY, A RAFIA DO Unavailable Unavailable AURY, A RAFIA DO Unavailable Unavailable AURY, A RAFIA DO Unavailable Unavailable AURY, A RAFIA DO Unavailable Unavailable AURY, A RAFIA DO Unavailable Unavailable AURY, A RAFIA DO Unavailable Unavailable AURY, A RAFIA DO Unavailable Unavailable AURY, A RAFIA DO Unavailable Unavailable AURY, A RAFIA DO Unavailable Unavailable Re-disclosure Warning The records that you are about to access may contain information from federally-assisted alcohol or drug abuse programs. If such information is present, then the following federally mandated warning applies: This information has been disclosed to you from records protected by federal confidentiality rules (42 CFR part 2). The federal rules prohibit you from making any further disclosure of this information unless further disclosure is expressly permitted by the written consent of the person to whom it pertains or as otherwise permitted by 42 CFR part 2. A general authorization for the release of medical or other information is NOT sufficient for this purpose. The Federal rules restrict any use of the information to criminally investigate or prosecute any alcohol or drug abuse patient.The records that you are about to access may contain highly sensitive health information, the redisclosure of which is protected by Article 27-F of the [facility] Public Health law. If you continue you may have access to information: Regarding HIV / AIDS; Provided by facilities licensed or operated by the [facility] Office of Mental Health; or Provided by the [facility] Office for People With Developmental Disabilities. If such information is present, then the following [facility] mandated warning applies: This information has been disclosed to you from confidential records which are protected by state law. State law prohibits you from making any further disclosure of this information without the specific written consent of the person to whom it pertains, or as otherwise permitted by law. Any unauthorized further disclosure in violation of state law may result in a fine or [place] [facility] sentence or both. A general authorization for the release of medical or other information is NOT sufficient authorization for further disc losure. Allergies and Adverse Reactions Type Description Substance Reaction Status Data Source(s ) Allergy to substance No Known Allergies No known allergies (situation ) JP (Tony Rubalcava MD [facility]) Allergy to substance No Known Allergies No known allergies (situation ) JP (Tony Rubalcava MD [facility]) Family History Family Member Name Family Member Gender Family Member Status Date o f Status Description Data Source(s) Unknown Male Problem [facility] ([facility] Unknown Unknown Problem [facility] ([facility]) all healthy - 1 full biologic, 9 yr old Ashley at [facility], 22yr old son Paul & 3 girls in [place]. Unknown Unknown Problem [facility] ([facility]) Unknown Female Problem [facility] ([facility] ) Encounters Encounter Providers Location Date Indications Data Source(s ) Outpatient Attender: TRINA CHOU MD [email or web address] 12/10/2020 12:00:00 AM EDT - 12/10/2020 01:56:20 PM EDT [facility] Outpatient Attender: Darlin Dueñas/Missael/Ravi miller 10/21/2020 10:15:00 AM EDT [facility] ([facility]) Outpatient<td ID="encounterTypeDescripti onID0">EXCISION OF EPIDERMAL INCLUSION CYST IN OFFICE </td><td>Rafia Dumas DO</td><td>Tony Mcintyre MD [facility]</td><td>09/03/2020</td><td>7:09AM</td><td>8:14AM</td><td></td> Attender: RAFIA Patricia MD [facility] 09/03/2020 07:09:00 AM EDT - 09/03/2020 08:14:00 AM EDT JP (Tony chiang MD [facility]) Outpatient<td ID="encounterTypeDescripti onID1">Returning Patient with Referral</td><td>Rafia Dumas DO</td><td>Tony Mcintyre MD [facility]</td><td>06/23/2020</td><td>12:24PM</td><td>1:10PM</td><td><content ID="encounterDiagnosisID1-0">Blepharitis Squamous</content>, <content ID="encounterDiagnosisID1-1">Dry Eye Syndrome</content>, <content ID="encounterDiagnosisID1-2">Pinguecula</content>, <content ID="encounterDiagnosisID1-3">Conjunctivitis Chronic Allergic</content>, <content ID="encounterDiagnosisID1-4">Epidermal Inclusion Cyst</content>, <content ID="encounterDiagnosisID1-5">Vitreous Disorders Degeneration</content>, <content ID="encounterDiagnosisID1-6">Taking Medication For Diabetes Long-term Use of Insulin</content>, <content ID="encounterDiagnosisID1-7">Diabetes Mellitus Type 2 Without Complication</content></td> Attender: RAFIA Patricia MD [facility] 06/23/2020 12:24:00 PM EDT - 06/23/2020 01:10:00 PM ED T Diabetes Mellitus Type 2 Without ComplicationTaking Medication For Diabetes Long-term Use of InsulinVitreous Disorders DegenerationEpidermal Inclusion CystConjunctivitis Chronic AllergicPingueculaDry Eye SyndromeBlepharitis SquamousDiabetes Mellitus Type 2 Without ComplicationTaking Medication For Diabetes Long-term Use of InsulinVitreous Disorders DegenerationEpidermal Inclusion CystConjunctivitis Chronic AllergicPingueculaDry Eye SyndromeBlepharitis Squamous JP (Tony Rubalcava MD [facility]) Diabetes Mellitus Type 2 Without Complic ation Taking Medication For Diabetes Long-term Use of Insulin Vitreous Disorders Degeneration Epidermal Inclusion Cyst Conjunctivitis Chronic Allergic Pinguecula Dry Eye Syndrome Blepharitis Squamous Diabetes Mellitus Type 2 Without Complic ation Taking Medication For Diabetes Long-term Use of Insulin 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 03/27/2020 12:00:00 AM EST completed <td I D="[id number]">Covid-19 (Pfizer)</td><td>03/27/2020, 02/26/2020</td><td></td> [facility] COVID-19 VACCINE Pfizer 03/27/2020 12:00:00 AM EST completed [facility] Vaccine Series Complete: YESThis Data wa s Submitted to [facility] Via [employer]. COVID-19 VACCINE Pfizer 03/18/2020 12:00:00 AM EST completed [facility] Vaccine Series Complete: YESThis Data wa s Submitted to [facility] Via [employer]. 208 02/26/2020 12:00:00 AM EST completed <td I D="[id number]">Covid-19 (Pfizer)</td><td>03/27/2020, 02/26/2020</td><td></td> [facility] COVID-19 VACCINE Pfizer 02/26/2020 12:00:00 AM EST completed [facility] Vaccine Series Complete: NOThis Data was Submitted to [facility] Via [employer]. Medications Medication Brand Name Start Date Product Form Dose Route Admi nistrative Instructions Pharmacy Instructions Status Indications Reaction Description Data Source(s) Methimazole 5 MG Oral Tablet methimazole (TAPAZOLE) 5 MG tablet methimazole (TAPAZOLE) 5 MG tablet 12/10/2020 12:00:00 AM EDT active take 5 mg one day per week [facility] telmisartan 80 MG Oral Tablet telmisartan (MICARDIS) 8 0 MG tablet telmisartan (MICARDIS) 80 MG tablet 06/05/2020 12:00:00 AM EDT 80 mg Oral active Take 1 tablet (80 mg total) by mouth daily [facility] Methimazole 5 MG Oral Tablet methimazole (TAPAZOLE) 5 MG tablet methimazole (TAPAZOLE) 5 MG tablet 06/05/2020 12:00:00 AM EDT aborted Take 5 mg 2 days per week Tuesday and [facility] Dexamethasone 1 MG/ML / Tobramycin 3 MG/ML Ophthalmic Suspension Tobramycin-Dexamethasone 06/04/2020 12:00:00 AM EDT completed [facility] ([facility]) Dexamethasone 1 MG/ML / Tobramycin 3 MG/ ML Ophthalmic Suspension tobramycin- dexamethasone (TOBRADEX) ophthalmic solution tobramycin-dexamethasone (TOBRADEX) ophthalmic solution 06/04/2020 12:00:00 AM EDT 1 [drp] active Administer 1 drop to both eyes 3 (three) times a day [facility] telmisartan 80 MG Oral Tablet telmisartan (MICARDIS) 8 0 MG tablet telmisartan (MICARDIS) 80 MG tablet 06/02/2020 12:00:00 AM EDT 80 mg Oral aborted Take 1 tablet (80 mg total) by mouth daily [facility] 24 HR metoprolol succinate 25 MG Extende d Release Oral Tablet metoprolol succinate (TOPROL-XL) 25 MG 24 hr tablet metoprolol succinate (TOPROL-XL) 25 MG 24 hr tablet 03/17/2020 12:00:00 AM EST 25 mg Oral activ e Take 1 tablet (25 mg total) by mouth daily [facility] Amlodipine 10 MG Oral Tablet amLODIPine (NORVASC) 10 M G tablet amLODIPine (NORVASC) 10 MG tablet 03/17/2020 12:00:00 AM EST 10 mg Oral active Take 1 tablet (10 mg total) by mouth daily [facility] Lancets [facility] [phone] 02/19/2020 12:00:00 AM EST active Type 2 diabetes mellitus without complication, with long-term current use of insulin test twice a day and as needed e11.9 [facility] Type 2 diabetes mellitus without complic ation, with long-term current use of insulin glucose blood (ONE TOUCH ULTRA TEST) test strip [id number] 02/19/2020 12:00:00 AM EST active Type 2 geno betes mellitus without complication, with long-term current use of insulin Test bid or if symptomatic mdd 3 [facility] Type 2 diabetes mellitus without complic ation, with long-term current use of insulin atorvastatin 10 MG Oral Tablet atorvastatin (LIPITOR) 10 MG tablet atorvastatin (LIPITOR) 10 MG tablet 02/19/2020 12:00:00 AM EST 10 mg Oral active Hypercholesterolemia Take 1 tablet (10 mg total) by mouth haroon campos [facility] Hypercholesterolemia Semaglutide,0.25 or 0.5MG/DOS, (OZEMPIC, 0.25 OR 0.5 M G/DOSE,) 2 MG/1.5ML SOPN [id number] 01/22/2020 12:00:00 AM EST activ e Type 2 diabetes mellitus without complication, with long-term current use of insulin 0. 5 mg weekly [facility] Type 2 diabetes mellitus without complic ation, with long-term current use of insulin Methimazole 5 MG Oral Tablet methimazole (TAPAZOLE) 5 MG tablet methimazole (TAPAZOLE) 5 MG tablet 07/05/2019 12:00:00 AM EDT aborted Take 5 mg 5 days per week [facility] tadalafil 10 MG Oral Tablet tadalafil (CIALIS) 10 MG t ablet tadalafil (CIALIS) 10 MG tablet 02/07/2019 12:00:00 AM EST abort ed TAKE 1TAB NEEDED FOR ERECTILE DYSFUNCTION 1H PRIOR TO INTERCOURSE REPLACES SILDENAFIL [facility] Insurance Providers Payer name Policy type / Coverage type Policy ID Covered democrat ID Covered democrat's relationship to phillips Policy Phillips Plan Information BCBS OF [place] 306/[id number] SP [id number] [place] PPO 302/307 [id number] SP [id number] [place] 302/307 [id number] SP [id number] EXCELLUS BCBS [id number] Kiesha VYA [id number] EXCELLUS H [id number] Self [id number] EXCELLUS BCBS [id number] Kiesha VYA [id number] [place] [employer] Commercial [id number] Self [id number] EXCELLUS BCBS [id number] [phone] [id number] EXCELLUS BCBS [id number] Kiesha VYA [id number] EX[employer] BCBS [id number] Kiesha VYA [id number] [place] [employer] Commercial [id number] Self [id number] [place] [id number] Self [id number] [place] [id number] Self [id number] [place] [employer] Commercial [id number] Self [id number] [place] [employer] Commercial [id number] Self [employer] Ppo Health Maintenance Organization (HMO) [id number] Self Usbpi EXCELLUS BCBS P [id number] S VYA [id number] EXCELLUS BCBS PI PI BCBS of [facility] Other 0 [id number] Self 0 Cherelle Reza [facility] Health Maintenance Organization (O) [id number] Self [id number] Cherelle Reza [facility] Health Maintenance Organization ([employer]) [id number] Self [id number] BCBS of [facility] Other 0 [id number] Self 0 Cherelle Reza [facility] Health Maintenance Organization ([employer]) [id number] Self [id number] [facility] [employer] [id number] Self Problems, Conditions, and Diagnoses Code Display Name Description Problem Type Effective Dates Data Source(s) E78.00 Pure hypercholesterolemia, unspecified P ure hypercholesterolemia, unspecified Diagnosis 12/10/2020 01:07:53 PM EDT [facility] Z79.4 intermediate card tender (current) use of insulin care home (cu rrent) use of insulin Diagnosis 12/10/2020 01:07:53 PM EDT [facility] s E11.9 Type 2 diabetes mellitus without complic ations Type 2 diabetes mellitus without complic Diagnosis 12/10/2020 01:07:53 PM EDT [facility] I10 Essential (primary) hypertension Essential (primary) h ypertension Diagnosis 12/10/2020 01:07:53 PM EDT [facility] 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 Diagnosis 12/10/2020 01:07:53 PM EDT [facility] E05.90 Thyrotoxicosis, unspecified without thyr otoxic crisis or storm Thyrotoxicosis, unspecified without thyr Diagnosis 06/05/2020 02:29:16 PM EDT [facility] 379.21 Vitreous Disorders Degeneration Vitreous Disorders Deg eneration Problem 06/23/2020 12:00:00 AM EDT [facility] (Tony Rubalcava MD [facility]) 375.15 Dry Eye Syndrome Dry Eye Syndrome Problem 06/23/2020 12 :00:00 AM EDT [facility] (Tony Rubalcava MD [facility]) 706.2 Epidermal Inclusion Cyst Epidermal Inclusion Cyst Prob jean 06/23/2020 12:00:00 AM EDT [facility] (Tony Rubalcava MD [facility]) 372.51 Pinguecula Pinguecula Problem 06/23/2020 12:00:00 AM ED T [facility] (Tony Rubalcava MD [facility]) [id number] Long-term current use of insulin (situat ion) Taking Medication For Diabetes Long-term Use of Insulin Problem 06/23/2020 12:00:00 AM EDT [facility] (Tony Rubalcava MD [facility]) 250.00 Diabetes Mellitus Type 2 Without Complic ation Diabetes Mellitus Type 2 Without Complication Problem 06/23/2020 12:00:00 AM EDT [facility] (Haroon Rubalcava MD [facility]) 372.14 Conjunctivitis Chronic Allergic Conjunctivitis Chronic Allergic Problem 06/23/2020 12:00:00 AM EDT [facility] (Tony Rubalcava MD [facility]) H01.02A Blepharitis Squamous Blepharitis Squamous Problem 06/23/2020 12:00:00 AM EDT [facility] (Tony Rubalcava MD [facility]) 379.21 Vitreous Disorders Degeneration Vitreous Disorders Deg eneration Problem 06/23/2020 12:00:00 AM EDT [facility] (Tony Rubalcava MD [facility]) 375.15 Dry Eye Syndrome Dry Eye Syndrome Problem 06/23/2020 12 :00:00 AM EDT [facility] (Tony Rubalcava MD [facility]) 706.2 Epidermal Inclusion Cyst Epidermal Inclusion Cyst Prob jean 06/23/2020 12:00:00 AM EDT [facility] (Tony Rubalcava MD [facility]) 372.51 Pinguecula Pinguecula Problem 06/23/2020 12:00:00 AM ED T [facility] (Tony Rubalcava MD [facility]) [id number] Long-term current use of insulin (situat ion) Taking Medication For Diabetes Long-term Use of Insulin Problem 06/23/2020 12:00:00 AM EDT [facility] (Tony Rubalcava MD [facility]) 250.00 Diabetes Mellitus Type 2 Without Complic ation Diabetes Mellitus Type 2 Without Complication Problem 06/23/2020 12:00:00 AM EDT [facility] (Haroon Rubalcava MD [facility]) 372.14 Conjunctivitis Chronic Allergic Conjunctivitis Chronic Allergic Problem 06/23/2020 12:00:00 AM EDT [facility] (Tony Rubalcava MD [facility]) H01.02A Blepharitis Squamous Blepharitis Squamous Problem 06/23/2020 12:00:00 AM EDT [facility] (Tony Rubalcava MD [facility]) [id number] Essential hypertension Essential hypertension Problem 03/03/2020 12:00:00 AM EST [facility] ([facility]) Surgeries/Procedures Procedure Description Date Indications Data Source(s) OFFICE OUTPATIENT VISIT 15 MINUTES 10/21/2020 12:00:00 AM EDT [facility] ([facility]) No surgical / procedural history No surgical / procedural hi story 09/03/2020 12:00:00 AM EDT JP (Tony Rubalcava MD [facility]) Medical Eye Exam Medical Eye Exam 06/23/2020 12:00:00 AM EDT [facility] (Tony Rubalcava MD [facility]) No surgical / procedural history No surgical / procedural hi story 06/23/2020 12:00:00 AM EDT [facility] (Tony Rubalcava MD [facility]) Medical Eye Exam Medical Eye Exam 06/23/2020 12:00:00 AM EDT [facility] (Tony Rubalcava MD [facility]) OFFICE OUTPATIENT VISIT 15 MINUTES 06/19/2020 12:00:00 AM EDT [facility] ([facility]) XTRNL ECG < 48 HR RECORDING 03/03/2020 12:00:00 AM EST [facility] ([facility]) XTRNL ECG CONTINUOUS RHYTHM PHYS REVIEW&INTERPJ 2019 12:00:00 AM EST [facility] ([facility]) ECG ROUTINE ECG W/LEAST 12 LDS W/I&R 02/20/2020 12:00: 00 AM EST [facility] ([facility]) Results ID Date Data Source [id number] 12/09/2020 10:21:00 AM EDT [facility] ([facility]) Name Value Range Interpretation Code Description Data Kristin rce(s) Supporting Document(s) Hemoglobin A1c 6.7 % [facility] ([facility]) <content>REFERENCE RANGES:</content><br/ ><content></content>
<content><=5.6% NORMAL</content>
<content>5.7-6.4% SUGGESTS IMPAIRED GLUCOSE METABOLISM/PREDIABETIC</content>
<content>>= 6.5% ABNORMAL</content>
<content></content> Estimated Average Glucose 146 mg/dL 60-110 [facility] NT ([facility]) ID Date Data Source [id number] 12/09/2020 09:46:00 AM EDT [facility] ([facility]) Name Value Range Interpretation Code Description Data Kristin rce(s) Supporting Document(s) Thyroid Stimulating Hormone 1.300 uIU/ML 0.358-3.740 [facility] ([facility]) Free T4 1.07 ng/dL 0.76-1.46 [facility] ID Date Data Source [id number] 12/09/2020 09:46:00 AM EDT [facility] ([facility]) Name Value Range Interpretation Code Description Data Kristin rce(s) Supporting Document(s) Triglycerides Level 107 mg/dL [facility] ([facility]) Cholesterol Level 166 mg/dL [facility] ([facility]) HDL Cholesterol 69 mg/dL [facility] ([facility]) LDL Cholesterol 76 mg/dL [facility] ([facility]) Cholesterol Risk Ratio 2.405 [facility] ([facility]) Non-HDL-C 97 mg/dL [facility]) ID Date Data Source [id number] 08/29/2020 08:08:00 AM EDT [facility] ([facility]) Name Value Range Interpretation Code Description Data Kristin rce(s) Supporting Document(s) Cholesterol [Mass/volume] in Serum or Plasma 172 mg/dL 131-200 [facility] ([facility]) Cholesterol in HDL [Mass/volume] in Serum or Plasma 68 mg/dL 35-60 [facility] ([facility]) Triglyceride [Mass/volume] in Serum or Plasma 189 mg/dL 30-150 [facility] ([facility]) Cholesterol in LDL [Mass/volume] in Serum or Plasma by calcu lation 66 CALC 50-159 [facility] ([facility]) ID Date Data Source [id number] 08/29/2020 08:08:00 AM EDT [facility] ([facility]) Name Value Range Interpretation Code Description Data Kristin rce(s) Supporting Document(s) Glucose [Mass/volume] in Serum or Plasma 147 mg/dL 74-99 [facility] ([facility]) 100-125 mg/dL PRE-DIABETES/FASTING >126 mg/dL DIABETES/FASTING Urea nitrogen [Mass/volume] in Serum or Plasma 11 mg/dL 7-18 [facility] ([facility]) Creatinine 1.2 mg/dL 0.6-1.3 [facility] ([facility]) Sodium [Moles/volume] in Serum or Plasma 136 meq/L 136-145 [facility] ([facility]) Potassium [Moles/volume] in Serum or Plasma 3.7 meq/L 3.5-5.1 [facility] ([facility]) Chloride [Moles/volume] in Serum or Plasma 98 meq/L 98-107 [facility] ([facility]) Calcium [Mass/volume] in Serum or Plasma 9.2 mg/dL 8.5-10.1 [facility] ([facility]) Carbon dioxide, total [Moles/volume] in Serum or Plasma 27 meq/L 21 -32 [facility] ([facility]) Total Bilirubin 1.1 mg/dL 0.2-1.0 [facility] ([facility]) Alkaline phosphatase isoenzyme [Units/volume] in Serum or Pl asma 83 mg/dL 46-116 [facility] ([facility]) Aspartate aminotransferase [Enzymatic activity/volume] in Serum or Plasma 23 U/L 15-37 [facility] ([facility] ) Alanine aminotransferase [Enzymatic activity/volume] in Seru m or Plasma 36 U/L 12-78 [facility] ([facility]) Albumin [Mass/volume] in Serum or Plasma 3.6 g/dL 3.4-5.0 [facility] ([facility]) A/G Ratio 1.00 CALC 1.00-1.90 [facility] Proteinase 3 Ab [Units/volume] in Serum 7.2 g/dL 6.4-8.2 [facility] ([facility]) Glomerular filtration rate/1.73 sq M pre dicted among non-blacks [Volume Rate/Area] in Serum or Plasma by Creatinine-based formula (MDRD) Laboratory test result [facility] Glomerular filtration rate/1.73 sq M pre dicted among blacks [Volume Rate/Area] in Serum or Plasma by Creatinine-based formula (MDRD) Laboratory test result [facility]) <content>CHRONIC KIDNEY DISEASE STAGING PER NKF</content>
<content></content>
<content>STAGE I & II GFR >= 60 NORMAL TO MILDLY DECREASED</content>
<content>STAGE III GFR 30-59 MODERATELY DECREASED</content>
<content>STAGE IV GFR 15-29 SEVERELY DECREASED</content>
<content>STAGE V GFR <15 VERY LITTLE GFR LEFT</content>
<content>ESRD GFR <15 ON OPTIONS ADVISOR</content>
<content></content> ID Date Data Source [id number] 08/29/2020 08:08:00 AM EDT [facility]) Name Value Range Interpretation Code Description Data Kristin rce(s) Supporting Document(s) Hemoglobin A1c/Hemoglobin.total in Blood 7.0 % [facility] Lab Result Notes: Pre-Diabetes 5.7 - 6.4 % Diabetes = or > 6.5% Glucose mean value [Mass/volume] in Blood Estimated fr om glycated hemoglobin 154 mg/dL 60-110 [facility] ID Date Data Source [id number] 08/29/2020 08:08:00 AM EDT [facility] Name Value Range Interpretation Code Description Data Kristin rce(s) Supporting Document(s) Hemoglobin A1c/Hemoglobin.total in Blood Laboratory test result [facility] ([facility]) ID Date Data Source [id number] 06/04/2020 09:19:00 AM EDT [facility] ([facility]) Name Value Range Interpretation Code Description Data Kristin rce(s) Supporting Document(s) Creatinine, Urine 110.0 mg/dL [facility] ([facility]) Malb Urine Siemens 26.0 mg/L [facility] ([facility]) Bryan/Creat Ratio 23.6 MCG/MG 0.0-30.0 [facility] ([facility]) THE [employer] STATES THAT MICROALBUMINURIA IS PRESENT IF THE MICROALBUMIN/CREATININE RATIO EXCEEDS 30 MCG/MG. THE THRESHOLD FOR CLINICAL ALBUMINURIA IS REACHED AT 300 MCG/MG. THE CLASSIFICATION OF A PATIENT SHOULD BE BASED UPON AT LEAST 2 OF 3 ABNORMAL RESULTS ON SPECIMENS COLLECTED WITHIN A 3 TO 6 MONTH TIME FRAME. ID Date Data Source [id number] 06/04/2020 09:19:00 AM EDT [facility] Name Value Range Interpretation Code Description Data Kristin rce(s) Supporting Document(s) Triiodothyronine (T3) Free [Mass/volume] in Serum or Plasma 2.6 pg/ mL 2.2-4.0 [facility] ID Date Data Source [id number] 06/04/2020 09:19:00 AM EDT [facility] Name Value Range Interpretation Code Description Data Kristin rce(s) Supporting Document(s) Free T4 0.97 ng/dL 0.76-1.46 [facility] ([facility]) Thyroid Stimulating Hormone 1.740 uIU/ML 0.358-3.740 [facility]) ID Date Data Source [id number] 06/04/2020 09:19:00 AM EDT [facility] Name Value Range Interpretation Code Description Data Kristin rce(s) Supporting Document(s) Prostate specific Ag [Mass/volume] in Serum or Plasma 0.45 ng/mL [facility]) The PSA assay is performed on the [employer] analyzer by [employer] sandwich chemiluminescent immunoassay and should not be compared interchangeably with other methods. It should not be used alone as a screening test or diagnosis for the presence or absence of malignant disease. Predictions of disease recurrence should not be based solely on values obtained from serial patient serum values. ID Date Data Source [id number] 06/04/2020 09:19:00 AM EDT [facility] ([facility]) Name Value Range Interpretation Code Description Data Kristin rce(s) Supporting Document(s) Blood Urea Nitrogen 10 mg/dL 7-18 [facility] ([facility]) Glucose, Fasting 132 mg/dL 70-100 [facility] ([facility]) Creatinine For GFR 1.15 mg/dL 0.70-1.30 [facility] ([facility]) Glomerular Filtration Rate Laboratory test result [facility]) <content>Units are mL/min/1.73 m2</content>
<content></content>
<content>Chronic Kidney Disease Staging per NKF:</content>
<content></content>
<content>Stage I & II GFR >=60 Normal to Mildly Decreased</content>
<content>Stage III GFR 30- 59 Moderately Decreased</content>
<content>Stage IV GFR 15-29 Severely Decreased</content>
<content>Stage V GFR <15 Very Little GFR Left</content>
<content>ESRD GFR <15 on OPTIONS ADVISOR</content>
<content></content> Sodium Level 135 meq/L 136-145 [facility] ([facility]) Potassium Serum 3.8 meq/L 3.5-5.1 [facility] ([facility]) Chloride Level 101 meq/L 98-107 [facility] ([facility]) Anion Gap 7 meq/L 8-16 [facility]) Carbon Dioxide Level 27 meq/L 21-32 [facility] Calcium Level 9.2 mg/dL 8.8-10.2 [facility] ([facility]) ID Date Data Source [id number] 04/04/2020 09:47:00 AM EST [facility] ([facility]) Name Value Range Interpretation Code Description Data Kristin rce(s) Supporting Document(s) Creatinine, Urine 132.0 mg/dL [facility] ([facility]) Bryan/Creat Ratio 15.2 MCG/MG 0.0-30.0 [facility] ([facility]) THE [employer] STATES THAT MICROALBUMINURIA IS PRESENT IF THE MICROALBUMIN/CREATININE RATIO EXCEEDS 30 MCG/MG. THE THRESHOLD FOR CLINICAL ALBUMINURIA IS REACHED AT 300 MCG/MG. THE CLASSIFICATION OF A PATIENT SHOULD BE BASED UPON AT LEAST 2 OF 3 ABNORMAL RESULTS ON SPECIMENS COLLECTED WITHIN A 3 TO 6 MONTH TIME FRAME. Malb Urine Siemens 20.1 mg/L [facility] ([facility]) ID Date Data Source [id number] 04/04/2020 09:46:00 AM EST [facility] ([facility]) Name Value Range Interpretation Code Description Data Kristin rce(s) Supporting Document(s) Free T4 1.03 ng/dL 0.76-1.46 [facility] Thyroid Stimulating Hormone 1.410 uIU/ML 0.358-3.740 [facility] ([facility]) ID Date Data Source [id number] 04/04/2020 09:46:00 AM EST [facility] ([facility]) Name Value Range Interpretation Code Description Data Kristin rce(s) Supporting Document(s) Triglycerides Level 117 mg/dL [facility] ([facility]) LDL Cholesterol 53 mg/dL [facility] ([facility]) Cholesterol Level 148 mg/dL [facility] ([facility]) HDL Cholesterol 72 mg/dL [facility] ([facility]) Non-HDL-C 76 mg/dL [facility]) Cholesterol Risk Ratio 2.055 [facility] ([facility]) ID Date Data Source [id number] 04/04/2020 09:46:00 AM EST [facility] ([facility]) Name Value Range Interpretation Code Description Data Kristin rce(s) Supporting Document(s) Hemoglobin A1c 6.5 % [facility] ([facility]) <content>REFERENCE RANGES:</content><br/ ><content></content>
<content><=5.6% NORMAL</content>
<content>5.7-6.4% SUGGESTS IMPAIRED GLUCOSE METABOLISM/PREDIABETIC</content>
<content>>= 6.5% ABNORMAL</content>
<content></content> Estimated Average Glucose 140 mg/dL 60-110 [facility] ([facility]) ID Date Data Source [id number] 02/26/2020 09:11:00 AM EST [facility] ([facility] Name Value Range Interpretation Code Description Data Kristin rce(s) Supporting Document(s) Prostate specific Ag [Mass/volume] in Serum or Plasma 0.48 ng/mL [facility]) This assay was performed on the Siemens Xuba EXL using the B- Galactosidase/CPRG methodology and should not be compared interchangeably with other methods. The PSA should not be used alone as a screening test for the presence or absence of malignant disease. ID Date Data Source [id number] 02/26/2020 09:11:00 AM EST [facility] ([facility]) Name Value Range Interpretation Code Description Data Kristin rce(s) Supporting Document(s) Thyrotropin [Units/volume] in Serum or Plasma by Detec tion limit <= 0.05 mIU/L 1.31 uIU/mL 0.36-3.74 [facility] ([facility] ) Thyroxine (T4) free [Mass/volume] in Serum or Plasma 1.02 ng/dL 0.76- 1.46 [facility] ([facility]) ID Date Data Source [id number] 02/26/2020 09:11:00 AM EST [facility] ([facility] Name Value Range Interpretation Code Description Data Kristin rce(s) Supporting Document(s) Triglyceride [Mass/volume] in Serum or Plasma 106 mg/dL 30-150 [facility] ([facility]) Cholesterol [Mass/volume] in Serum or Plasma 159 mg/dL 131-200 [facility] ([facility]) Cholesterol in LDL [Mass/volume] in Serum or Plasma by calcu lation 65 CALC 50-159 [facility] ([facility]) Cholesterol in HDL [Mass/volume] in Serum or Plasma 73 mg/dL 35-60 [facility] ([facility]) ID Date Data Source [id number] 02/26/2020 09:11:00 AM EST [facility] ([facility]) Name Value Range Interpretation Code Description Data Kristin rce(s) Supporting Document(s) Glucose [Mass/volume] in Serum or Plasma 127 mg/dL 74-99 [facility] ([facility]) 100-125 mg/dL PRE-DIABETES/FASTING >126 mg/dL DIABETES/FASTING Urea nitrogen [Mass/volume] in Serum or Plasma 13 mg/dL 7-18 [facility] ([facility]) Creatinine 1.1 mg/dL 0.6-1.3 [facility] ([facility]) Sodium [Moles/volume] in Serum or Plasma 137 meq/L 136-145 [facility] ([facility]) Potassium [Moles/volume] in Serum or Plasma 3.9 meq/L 3.5-5.1 [facility] ([facility]) Carbon dioxide, total [Moles/volume] in Serum or Plasma 25 meq/L 21 -32 [facility] Chloride [Moles/volume] in Serum or Plasma 101 meq/L 98-107 [facility] ([facility]) Calcium [Mass/volume] in Serum or Plasma 8.9 mg/dL 8.5-10.1 [facility]) Alkaline phosphatase isoenzyme [Units/volume] in Serum or Pl asma 76 mg/dL 46-116 [facility]) Total Bilirubin 1.0 mg/dL 0.2-1.0 [facility] ([facility]) Aspartate aminotransferase [Enzymatic activity/volume] in Serum or Plasma 24 U/L 15-37 [facility] ([facility] ) Alanine aminotransferase [Enzymatic activity/volume] in Seru m or Plasma 37 U/L 12-78 [facility] ([facility]) Albumin [Mass/volume] in Serum or Plasma 3.7 g/dL 3.4-5.0 [facility] ([facility]) Proteinase 3 Ab [Units/volume] in Serum 7.2 g/dL 6.4-8.2 [facility]) Glomerular filtration rate/1.73 sq M pre dicted among non-blacks [Volume Rate/Area] in Serum or Plasma by Creatinine-based formula (MDRD) Laboratory test result [facility] ([facility] ) A/G Ratio 1.06 CALC 1.00-1.90 [facility] ([facility]) Glomerular filtration rate/1.73 sq M pre dicted among blacks [Volume Rate/Area] in Serum or Plasma by Creatinine-based formula (MDRD) Laboratory test result [facility] ([facility]) <content>CHRONIC KIDNEY DISEASE STAGING PER NKF</content>
<content></content>
<content>STAGE I & II GFR >= 60 NORMAL TO MILDLY DECREASED</content>
<content>STAGE III GFR 30-59 MODERATELY DECREASED</content>
<content>STAGE IV GFR 15-29 SEVERELY DECREASED</content>
<content>STAGE V GFR <15 VERY LITTLE GFR LEFT</content>
<content>ESRD GFR <15 ON OPTIONS ADVISOR</content>
<content></content> ID Date Data Source [id number] 02/26/2020 09:11:00 AM EST [facility] ([facility]) Name Value Range Interpretation Code Description Data Kristin rce(s) Supporting Document(s) Magnesium 2.0 mg/dL 1.8-2.4 [facility]) ID Date Data Source [id number] 02/26/2020 09:11:00 AM EST [facility] ([facility]) Name Value Range Interpretation Code Description Data Kristin rce(s) Supporting Document(s) Hemoglobin A1c/Hemoglobin.total in Blood 6.6 % [facility]) Lab Result Notes: Pre-Diabetes 5.7 - 6.4 % Diabetes = or > 6.5% Glucose mean value [Mass/volume] in Blood Estimated fr om glycated hemoglobin 143 mg/dL 60-110 [facility] Procedure Social History Code Duration Value Status Description Data Source(s ) Alcohol intake 12/10/2020 12:00:00 AM EDT Current drinker of al cohol (finding) completed Current drinker of alcohol (finding) [facility] Smoking 10/15/2020 10:49:44 AM EDT Never smoked tobacco (findi ng) completed Never smoked tobacco (finding) [facility] (Tony Rubalcava MD [facility]) Smoking 06/23/2020 01:20:00 PM EDT Never smoked tobacco (findi ng) completed Never smoked tobacco (finding) [facility] (Tony Rubalcava MD [facility]) Alcohol intake 06/05/2020 12:00:00 AM EDT Yes completed [facility] Smoking 06/05/2020 12:00:00 AM EDT Never smoker completed Never s moker [facility] Vital Signs ID Date Data Source [id number] Name Value Range Interpretation Code Description Data Source(s) Systolic blood pressure 150 mm[Hg] 150 mm[Hg] [facility] Diastolic blood pressure 80 mm[Hg] 80 mm[Hg] [facility] Heart rate 70 /min 70 /min [facility] Body temperature 36.22 Michelle 36.22 Michelle [facility] Respiratory rate 16 /min 16 /min [facility] Body height 177.8 cm 177.8 cm [facility] Body weight 93.441 kg 93.441 kg [facility] Body mass index (BMI) [Ratio] 29.56 kg/m2 29.56 kg/m2 [facility] Oxygen saturation in Arterial blood by Pulse oximetry 98 % 98 % [facility] Body weight 238.00 [lb_av] 238.00 [facility]lb_av] [facility] Systolic blood pressure 130 mm[Hg] 130 mm[Hg] [facility] ([facility]) Diastolic blood pressure 70 mm[Hg] 70 mm[Hg] [facility] ([facility]) Body height 70 [in_i] 70 [in_i] [facility] ([facility]) 5'10" Body mass index (BMI) [Ratio] 34.1 kg/m2 34.1 k g/m2 [facility] ([facility]) Turner body weight 166 [lb_av] 166 [lb_av] [facility] T ([facility]) Body weight 107.957 kg 107.957 kg [facility] ([facility]) Body surface area Derived from formula 2.25 m2 2.25 m2 [facility] Diastolic blood pressure 90 mm[Hg] 90 mm[Hg] [facility] ([facility]) Systolic blood pressure 138 mm[Hg] 138 mm[Hg] [facility] ([facility]) Heart rate 78 /min 78 /min [facility] ([facility]) Body height 71 [in_i] 71 [in_i] [facility] ([facility]) 5'11" Body weight 211.00 [lb_av] 211.00 [lb_av] [facility] T ([facility]) Body mass index (BMI) [Ratio] 29.4 kg/m2 29.4 k g/m2 [facility] Systolic blood pressure 130 mm[Hg] 130 mm[Hg] [facility] Diastolic blood pressure 88 mm[Hg] 88 mm[Hg] [facility] Heart rate 85 /min 85 /min [facility] Respiratory rate 18 /min 18 /min [facility] Body height 178.4 cm 178.4 cm [facility] Body weight 93.441 kg 93.441 kg [facility] Body mass index (BMI) [Ratio] 29.35 kg/m2 29.35 kg/m2 [facility] Body height 70 [in_i] 70 [in_i] [facility] ([facility], ) 5'10" Body weight 205.25 [lb_av] 205.25 [lb_av] [facility] ([facility], ) Turner body weight 166 [lb_av] 166 [lb_av] [facility] ([facility], ) Body mass index (BMI) [Ratio] 29.4 kg/m2 29.4 k g/m2 [facility] ([facility], ) Body surface area Derived from formula 2.11 m2 2.11 m2 [facility] ([facility], ) Systolic blood pressure 157 mm[Hg] 157 mm[Hg] [facility] Diastolic blood pressure 95 mm[Hg] 95 mm[Hg] [facility] ([facility], ) Body weight 93.101 kg 93.101 kg [facility] ([facility], ) Body mass index (BMI) [Ratio] 29.0 kg/m2 29.0 k g/m2 [facility] ([facility]) Diastolic blood pressure 80 mm[Hg] 80 mm[Hg] [facility] ([facility]) Systolic blood pressure 142 mm[Hg] 142 mm[Hg] [facility] ([facility]) Systolic blood pressure 135 mm[Hg] 135 mm[Hg] [facility] ([facility]) Diastolic blood pressure 70 mm[Hg] 70 mm[Hg] [facility] ([facility]) Heart rate 78 /min 78 /min [facility] ([facility]) Body height 71 [in_i] 71 [in_i] [facility] ([facility]) 5'11" Body weight 208.00 [lb_av] 208.00 [lb_av] [facility] Patient Treatment Plan of Care Planned Activity Planned Date Details Description Data Source (s) Methimazole 5 MG Oral Tablet 12/10/2020 12:00:00 AM EDT [facility] Methimazole 5 MG Oral Tablet 06/05/2020 12:00:00 AM EDT [facility] telmisartan 80 MG Oral Tablet 06/05/2020 12:00:00 AM EDT [facility] Dexamethasone 1 MG/ML / Tobramycin 3 MG/ML Ophthalmic Suspension 06/04/2020 12:00:00 AM EDT [facility] telmisartan 80 MG Oral Tablet 06/02/2020 12:00:00 AM EDT [facility] 24 HR metoprolol succinate 25 MG Extended Release Oral Tablet 03/17/2020 12:00:00 AM EST [facility] Amlodipine 10 MG Oral Tablet 03/17/2020 12:00:00 AM EST [facility] glucose blood (ONE TOUCH ULTRA TEST) test strip 02/19/2020 12:00:00 AM EST [facility] atorvastatin 10 MG Oral Tablet 02/19/2020 12:00:00 AM EST [facility] Lancets 30G MISC 02/19/2020 12:00:00 AM EST [facility] Semaglutide,0.25 or 0.5MG/DOS, (OZEMPIC, 0.25 OR 0.5 M G/DOSE,) 2 MG/1.5ML SOPN 01/22/2020 12:00:00 AM EST [facility] Methimazole 5 MG Oral Tablet 07/05/2019 12:00:00 AM EDT [facility] tadalafil 10 MG Oral Tablet 02/07/2019 12:00:00 AM EST [facility]
[2021-01-15 07:52] VITALS: BP 177/100
[2021-01-15] MEDS ORDERED: OZEM2INJ SQ (07:52)
--- NOTE | 2021-01-15 09:32 | ROOR ---
Patient Name: Wayne Galicia Procedure Date: 01/15/2021 9:08 AM Date of : 1960 Age: 60 Room: [facility] Gender: Male Note Status: Finalized Procedure: Colonoscopy Indications: High risk colon cancer surveillance: Personal history of colonic polyps Providers: Tayo Mitchell Jr, MD Referring MD: Loc Bowles MD Requesting Provider: Medicines: Propofol per Anesthesia Complications: No immediate complications. Procedure: Pre-Anesthesia Assessment: - Prior to the procedure, a History and Physical was performed, and patient medications and allergies were reviewed. The patient is competent. The risks and benefits of the procedure and the sedation options and risks were discussed with the patient. All questions were answered and informed consent was obtained. Patient identification and proposed procedure were verified by the physician and the nurse in the pre-procedure area and in the procedure room. Mental Status Examination: alert and oriented. Airway Examination: normal oropharyngeal airway and neck mobility. Respiratory Examination: clear to auscultation. CV Examination: normal. ASA Grade Assessment: II - A patient with mild systemic disease. After reviewing the risks and benefits, the patient was deemed in satisfactory condition to undergo the procedure. The anesthesia plan was to use moderate sedation / analgesia (conscious sedation). Immediately prior to administration of medications, the patient was re-assessed for adequacy to receive sedatives. The heart rate, respiratory rate, oxygen saturations, blood pressure, adequacy of pulmonary ventilation, and response to care were monitored throughout the procedure. The physical status of the patient was re-assessed after the procedure. The Colonoscope was introduced through the anus and advanced to the cecum, identified by appendiceal orifice and ileocecal valve. The colonoscopy was performed without difficulty. The patient tolerated the procedure well. The quality of the bowel preparation was adequate. Findings: Two polyps were found in the transverse colon and ascending colon. The polyps were small in size. These polyps were removed with a jumbo cold forceps. Resection and retrieval were complete. The rectum, recto-sigmoid colon, descending colon, cecum, appendiceal orifice and ileocecal valve appeared normal. Multiple small and large-mouthed diverticula were found in the sigmoid colon. Impression: - Two small polyps in the transverse colon and in the ascending colon, removed with a jumbo cold forceps. Resected and retrieved. - The rectum, recto-sigmoid colon, descending colon, cecum, appendiceal orifice and ileocecal valve are normal. - Diverticulosis in the sigmoid colon. Recommendation: - Discharge patient to home (ambulatory). - Repeat colonoscopy in 5 years for surveillance. Procedure Code(s): --- Professional --- 33014, Colonoscopy, flexible; with biopsy, single or multiple Diagnosis Code(s): --- Professional --- Z86.010, Personal history of colonic polyps K63.5, Polyp of colon K57.30, Diverticulosis of large intestine without perforation or abscess without bleeding CPT copyright 2019 [employer]. All rights reserved. The codes documented in this report are preliminary and upon tractor operator battery review may be revised to meet current compliance requirements. Tayo Mitchell MD Tayo Mitchell Jr, MD 01/15/2021 9:32:14 AM Electronically signed by Tayo Mitchell Jr, MD Number of Addenda: 0 Note Initiated On: 01/15/2021 9:08 AM Estimated Blood Loss: Estimated blood loss: none.
== END 2021-01-15 09:44 | disposition home or self-care (01) ==
LOC: M OPP 07:43
PROVIDERS: ATTEND Surgery
DX: D12.6 Benign neoplasm of colon, unspecified (principal); K57.30 Diverticulosis of large intestine without perforation or abscess without bleeding; Z86.010 Personal history of colon polyps; I10 Essential (primary) hypertension; E03.9 Hypothyroidism, unspecified; E11.9 Type 2 diabetes mellitus without complications; Z79.899 Other long term (current) drug therapy; Z85.46 Personal history of malignant neoplasm of prostate

== ENCOUNTER → 2022-05-18 | Outpatient (CLI) | payer BC ==
[~2022-05-18] MED LIST changes: -LIDOCAINE 2% 100MG/5ML SDV (FOR ANES.) As Ordered ONE; -NS 1,000 ML IV ONE; +OZEM2INJ SQ; -propofoL 200 MG/20 ML VIAL As Ordered ONE
[2022-05-18 09:08] LABS: BLOOD UREA NITROGEN 13 MG/DL (9-23); CALCIUM LEVEL 9.2 MG/DL (8.3-10.6); CARBON DIOXIDE LEVEL 26 MMOL/L (20-31); CHLORIDE LEVEL 101 MMOL/L (98-107); CHOLESTEROL LEVEL 142 MG/DL (<200); CREATININE FOR GFR 1.02 MG/DL (0.70-1.30); GLOMERULAR FILTRATION RATE > 60.0 (>49); GLUCOSE, FASTING 161 MG/DL (74-106); HDL CHOLESTEROL 50.6 MG/DL (>40); NON-HDL-C 91.4 MG/DL; POTASSIUM SERUM 3.8 MMOL/L (3.5-5.1); SODIUM LEVEL 135 MMOL/L (136-145); THYROID STIMULATING HORMONE 2.485 uIU/ML (0.55-4.78)
[2022-05-18 09:25] LABS: HEMOGLOBIN A1c 7.7 % (4.0-6.0)
[2022-05-18 12:36] LABS: LDL CHOLESTEROL 58.2 MG/DL (<100); TRIGLYCERIDES LEVEL 166 MG/DL (<150)
== END ==
LOC: M LAB 07:52
PROVIDERS: ATTEND Internal Medicine Endocrinology, Diabetes & Metabolism
DX: E11.9 Type 2 diabetes mellitus without complications (principal); E78.00 Pure hypercholesterolemia, unspecified; E05.00 Thyrotoxicosis with diffuse goiter without thyrotoxic crisis or storm

== ENCOUNTER → 2022-06-25 | Outpatient (CLI) | payer BC ==
[~2022-06-25] MED LIST changes: +ASPI-655 PO; -ASPI1CHW3 PO
== END ==
LOC: M WUC 10:28
PROVIDERS: ATTEND Family Medicine
DX: R05.9 Cough, unspecified (principal)

== ENCOUNTER → 2022-06-25 | Outpatient (CLI) | payer BC | LOC: M WUC 10:33 | PROVIDERS: ATTEND Family Medicine | DX: R05.9 Cough, unspecified (principal) ==

== ENCOUNTER → 2022-09-19 | Outpatient (CLI) | payer BC ==
[2022-09-19 09:31] LABS: BLOOD UREA NITROGEN 10 MG/DL (9-23); CARBON DIOXIDE LEVEL 25 MMOL/L (20-31); CHLORIDE LEVEL 99 MMOL/L (98-107); CREATININE FOR GFR 0.94 MG/DL (0.70-1.30); GLOMERULAR FILTRATION RATE > 60.0 (>49); GLUCOSE, FASTING 140 MG/DL (74-106); POTASSIUM SERUM 3.6 MMOL/L (3.5-5.1); SODIUM LEVEL 134 MMOL/L (136-145)
[2022-09-19 09:33] LABS: THYROID STIMULATING HORMONE 2.541 uIU/ML (0.55-4.78); THYROXINE (T4) 8.5 UG/DL (4.5-10.9)
== END ==
LOC: M LAB 08:06
DX: E05.00 Thyrotoxicosis with diffuse goiter without thyrotoxic crisis or storm (principal); E11.9 Type 2 diabetes mellitus without complications